=== PATIENT | female | born 1940 | race African-American/Black ===

== ENCOUNTER 2022-11-28 11:36 | Inpatient (IN) | payer OTHER ==
[2022-11-28] MEDS ORDERED: SODIUM CHLORIDE 500 ML IV STA ×2 (12:10→15:36)
[2022-11-28 13:58] LABS: BASO % 0.4 % (0-2.0); EOS % 1.9 % (0-4.5); HEMATOCRIT 30.8 % (32.4-45.2); HEMOGLOBIN 10.1 GM/dL (10.7-15.3); LYMPH % 29.3 % (8-40); MCH 27.4 pg (25.7-33.7); MCHC 32.7 g/dl (32.0-36.0); MEAN CELL VOLUME 83.9 fl (80-96); MEAN PLT VOLUME 8.1 fl (7.5-11.1); MONO % 9.1 % (3.8-10.2); NEUT % 59.3 % (42.8-82.8); PLATELET COUNT 311 10^3/uL (134-434); RBC 3.67 M/mm3 (3.60-5.2); RDW 14.2 % (11.6-15.6); WHITE BLOOD COUNT 7.7 K/mm3 (4.0-10.0)
[2022-11-28 14:04] LABS: INR 1.81 (0.83-1.09); PROTHROMBIN TIME (PATIENT) 20.9 SEC (9.7-13.0)
[2022-11-28 14:32] LABS: POTASSIUM 5.9 mmol/L (3.5-5.1)
[2022-11-28 14:34] LABS: ALBUMIN 2.7 g/dl (3.4-5.0); CALCIUM 9.1 mg/dL (8.5-10.1); MAGNESIUM 2.6 mg/dL (1.8-2.4)
[2022-11-28 14:35] LABS: BLOOD UREA NITROGEN 48.1 mg/dL (7-18)
[2022-11-28 14:38] LABS: CREATININE 1.7 mg/dL (0.55-1.3)
[2022-11-28 14:39] LABS: TOT PROT 7.7 g/dl (6.4-8.2)
[2022-11-28] MEDS ORDERED: DEXTROSE 50%-WATER - 25 GM/50 ML VIAL IVPUSH ONE ×3 (14:42→15:38)
[2022-11-28] MEDS ORDERED: CALCIUM GLUCONATE 10% - 1,000 MG/10 ML VIAL IVPUSH ONE (14:43)
[2022-11-28] MEDS ORDERED: DEXTROSE 50%-WATER 25 GM/50 ML DISP.SYRIN ONE ×2 (14:46→15:44)
[2022-11-28 14:52] LABS: BILIRUBIN,TOTAL 0.4 mg/dL (0.2-1)
[2022-11-28] MEDS ORDERED: CALCIUM GLUC IN NACL, ISO-OSM 1 GM/50 ML BAG IVPB ONE (14:55)
[2022-11-28 16:34] LABS: EPI CELLS 29 /uL (0-25.1); HYALINE CASTS 0 /uL (0-3.1); URINE APPEARANCE TURBID; URINE BACTERIA 4430 /uL (0-1359); URINE BILIRUBIN NEGATIVE (NEGATIVE); URINE COLOR YELLOW; URINE GLUCOSE (UA) NEGATIVE (NEGATIVE); URINE KETONE NEGATIVE (NEGATIVE); URINE LEUK ESTERASE 3+ (NEGATIVE); URINE NITRITE NEGATIVE (NEGATIVE); URINE PROTEIN 2+ (NEGATIVE); URINE RBC 139 /uL (0-23.9); URINE UROBILINOGEN 0.2 mg/dL (0.2-1.0); URINE WBC 13091 /uL (0-25.8)
[2022-11-28 17:23] LABS: YEAST NONE SEEN (NEGATIVE)
[2022-11-28 17:39] LABS: VENOUS BASE EXCESS -3.7 mmol/L (-2-2); VENOUS O2 SATURATION 43.8 % (70-80); VENOUS PCO2 47.2 mmHg (38-52); VENOUS PH 7.302 (7.310-7.410)
[2022-11-28 18:08] LABS: POTASSIUM 5.6 mmol/L (3.5-5.1)
[2022-11-28 18:09] LABS: CALCIUM 9.9 mg/dL (8.5-10.1)
[2022-11-28 18:10] LABS: BLOOD UREA NITROGEN 46.9 mg/dL (7-18)
[2022-11-28 18:13] LABS: CREATININE 1.8 mg/dL (0.55-1.3)
[2022-11-28] MEDS ORDERED: CEFTRIAXONE 1,000 MG in DEXTROSE 5%-WATER - 50 ML IVPB ONE (18:13)
[2022-11-28] MEDS ORDERED: CEFTRIAXONE 1 GM/50 ML BAG ONE (18:14)
[2022-11-28] MEDS: DEXTROSE 5%-NORMAL SALINE 1,000 ML IV SCH (18:23)
[2022-11-28] MEDS ORDERED: DOCUSATE SODIUM 100 MG CAPSULE (FP) PO PRN (21:06)
[2022-11-28] MEDS ORDERED: ACETAMINOPHEN 325 MG TABLET (FP) PO PRN (21:06)
[2022-11-28] MEDS ORDERED: INSULIN (NOVOLOG) ASPART 100 UNITS/ML 10ML VIAL ONE (22:36)
[2022-11-28] MEDS: INSULIN SLIDING SCALE (NOVOLOG) 1 VIAL SQ SCH (22:53)
[2022-11-29] MEDS: INSULIN SLIDING SCALE (NOVOLOG) 1 VIAL SQ SCH ×4 (06:40→21:54)
[2022-11-29 07:07] LABS: BASO % 0.3 % (0-2.0); EOS % 1.8 % (0-4.5); HEMOGLOBIN 9.4 GM/dL (10.7-15.3); LYMPH % 24.3 % (8-40); MCH 27.4 pg (25.7-33.7); MCHC 32.5 g/dl (32.0-36.0); MEAN CELL VOLUME 84.4 fl (80-96); MONO % 9.9 % (3.8-10.2); NEUT % 63.7 % (42.8-82.8); PLATELET COUNT 294 10^3/uL (134-434); RBC 3.43 M/mm3 (3.60-5.2); WHITE BLOOD COUNT 7.4 K/mm3 (4.0-10.0)
[2022-11-29 07:37] LABS: POTASSIUM 5.1 mmol/L (3.5-5.1)
[2022-11-29 07:39] LABS: BLOOD UREA NITROGEN 42.8 mg/dL (7-18); CALCIUM 9.3 mg/dL (8.5-10.1); MAGNESIUM 2.3 mg/dL (1.8-2.4)
[2022-11-29 07:42] LABS: CREATININE 1.5 mg/dL (0.55-1.3); PHOSPHOROUS 4.8 mg/dL (2.5-4.9)
[2022-11-29] MEDS: CEFTRIAXONE 1 GM in DEXTROSE 5%-WATER - 50 ML IVPB SCH (14:57)
[2022-11-29] MEDS: DEXTROSE 5%-NORMAL SALINE 1,000 ML IV SCH (17:51)
[2022-11-29] MEDS: levETIRAcetam 500 MG TABLET (FP) PO SCH (21:59)
[2022-11-29] MEDS: APIXABAN 5 MG TABLET PO SCH (21:59)
[2022-11-29] MEDS: ATORVASTATIN CA 80 MG TABLET (FP) PO SCH (21:59)
[2022-11-30] MEDS: DEXTROSE 5%-NORMAL SALINE 1,000 ML IV SCH (04:52)
[2022-11-30] MEDS: INSULIN SLIDING SCALE (NOVOLOG) 1 VIAL SQ SCH ×4 (06:36→23:00)
[2022-11-30 07:50] LABS: BASO % 0.5 % (0-2.0); EOS % 2.5 % (0-4.5); HEMATOCRIT 28.3 % (32.4-45.2); HEMOGLOBIN 9.3 GM/dL (10.7-15.3); LYMPH % 25.4 % (8-40); MCH 27.5 pg (25.7-33.7); MCHC 32.9 g/dl (32.0-36.0); MEAN CELL VOLUME 83.6 fl (80-96); MONO % 9.1 % (3.8-10.2); NEUT % 62.5 % (42.8-82.8); PLATELET COUNT 274 10^3/uL (134-434); RBC 3.39 M/mm3 (3.60-5.2); RDW 13.9 % (11.6-15.6); WHITE BLOOD COUNT 7.6 K/mm3 (4.0-10.0)
[2022-11-30 08:03] LABS: POTASSIUM 4.7 mmol/L (3.5-5.1)
[2022-11-30 08:07] LABS: ALBUMIN 2.5 g/dl (3.4-5.0); CALCIUM 9.1 mg/dL (8.5-10.1)
[2022-11-30 08:08] LABS: BLOOD UREA NITROGEN 22.4 mg/dL (7-18)
[2022-11-30 08:10] LABS: CREATININE 0.9 mg/dL (0.55-1.3)
[2022-11-30 08:12] LABS: BILIRUBIN,TOTAL 0.3 mg/dL (0.2-1); TOT PROT 7.2 g/dl (6.4-8.2)
[2022-11-30] MEDS ORDERED: levETIRAcetam 500 MG TABLET (FP) PO SCH ×2 (10:00)
[2022-11-30] MEDS ORDERED: PATIENT'S OWN MEDICATION (NON-FORMULARY) (Levetiracetam [Levetiracetam] 750 MG Tablet) PO SCH (10:00)
[2022-11-30] MEDS: APIXABAN 5 MG TABLET PO SCH ×3 (10:40→21:22)
[2022-11-30] MEDS: metoPROLOL SUCCINATE 25 MG TAB.SR.24H (FP) PO SCH ×2 (10:40→10:45)
[2022-11-30] MEDS: CEFTRIAXONE 1 GM in DEXTROSE 5%-WATER - 50 ML IVPB SCH (10:40)
[2022-11-30] MEDS: ATORVASTATIN CA 80 MG TABLET (FP) PO SCH (21:22)
[2022-11-30] MEDS: levETIRAcetam 500 MG TABLET (FP) PO SCH (21:23)
[2022-12-01] MEDS: INSULIN SLIDING SCALE (NOVOLOG) 1 VIAL SQ SCH ×3 (07:47→17:26)
[2022-12-01] MEDS: metoPROLOL SUCCINATE 25 MG TAB.SR.24H (FP) PO SCH (10:28)
[2022-12-01] MEDS: APIXABAN 5 MG TABLET PO SCH ×2 (10:28→23:29)
[2022-12-01] MEDS: CEFTRIAXONE 1 GM in DEXTROSE 5%-WATER - 50 ML IVPB SCH (10:28)
[2022-12-01] MEDS ORDERED: INSULIN (NOVOLOG) ASPART 100 UNITS/ML 10ML VIAL ONE ×2 (14:30→17:26)
[2022-12-01] MEDS: DEXTROSE 5%-NORMAL SALINE 1,000 ML IV SCH (17:24)
[2022-12-01] MEDS: MELATONIN 1 MG TABLET PO SCH (22:00)
[2022-12-01] MEDS: ATORVASTATIN CA 80 MG TABLET (FP) PO SCH (23:29)
[2022-12-01] MEDS: levETIRAcetam 500 MG TABLET (FP) PO SCH (23:29)
[2022-12-02] MEDS: INSULIN SLIDING SCALE (NOVOLOG) 1 VIAL SQ SCH ×5 (06:51→21:58)
[2022-12-02 08:25] LABS: POTASSIUM 3.8 mmol/L (3.5-5.1)
[2022-12-02 08:34] LABS: CALCIUM 9.2 mg/dL (8.5-10.1)
[2022-12-02 08:35] LABS: BLOOD UREA NITROGEN 10.3 mg/dL (7-18)
[2022-12-02 08:38] LABS: CREATININE 0.9 mg/dL (0.55-1.3)
[2022-12-02 08:56] LABS: HEMATOCRIT 29.3 % (32.4-45.2); HEMOGLOBIN 9.6 GM/dL (10.7-15.3); MCH 27.5 pg (25.7-33.7); MCHC 32.7 g/dl (32.0-36.0); MEAN PLT VOLUME 8.1 fl (7.5-11.1); PLATELET COUNT 247 10^3/uL (134-434); RBC 3.49 M/mm3 (3.60-5.2); RDW 13.9 % (11.6-15.6); WHITE BLOOD COUNT 13.9 K/mm3 (4.0-10.0)
[2022-12-02] MEDS: CEFTRIAXONE 1 GM in DEXTROSE 5%-WATER - 50 ML IVPB SCH (10:10)
[2022-12-02] MEDS: metoPROLOL SUCCINATE 25 MG TAB.SR.24H (FP) PO SCH (10:11)
[2022-12-02] MEDS: APIXABAN 5 MG TABLET PO SCH (10:11)
[2022-12-02] MEDS ORDERED: LORazepam 0.5 MG TABLET PO ONE ×2 (15:15→23:08)
[2022-12-02] MEDS ORDERED: METOPROLOL TARTRATE 5 MG/5 ML VIAL ONE (16:07)
[2022-12-02] MEDS ORDERED: METOPROLOL TARTRATE 5 MG/5 ML VIAL IVPUSH ONE (16:12)
[2022-12-02] MEDS ORDERED: dilTIAZem HCL 50 MG/10 ML - 10 ML VIAL IVPUSH ONE (16:26)
[2022-12-02 16:51] LABS: MAGNESIUM 1.5 mg/dL (1.8-2.4)
[2022-12-02] MEDS ORDERED: MAGNESIUM SULF 50% (8.12 MEQ/2 ML-1 GM VIAL) IVPB ONE (17:01)
[2022-12-02] MEDS ORDERED: AMIODARONE IN DEXTROSE,ISO-OSM 360 MG/200 ML BAG IV SCH ×3 (17:15→23:45)
[2022-12-02] MEDS ORDERED: AMIODARONE IN DEXTROSE,ISO-OSM 150 MG/100 ML BAG IVPB ONE (17:30)
[2022-12-02] MEDS: DEXTROSE 5%-NORMAL SALINE 1,000 ML IV SCH ×2 (18:06→19:00)
[2022-12-02] MEDS ORDERED: ENOXAPARIN NA (PORCINE) 80 MG/0.8 ML DISP.SYRIN SQ SCH (18:15)
[2022-12-02] MEDS: levETIRAcetam 500 MG TABLET (FP) PO SCH (21:51)
[2022-12-02] MEDS: ATORVASTATIN CA 80 MG TABLET (FP) PO SCH (21:51)
[2022-12-02] MEDS: CHLORHEXIDINE GLUCONATE 4% CLEANSER FOR DECOLONIZATION TP SCH (21:51)
[2022-12-02] MEDS: MUPIROCIN 2% TOPICAL OINTMENT FOR DECOLONIZATION NS SCH (21:51)
[2022-12-02] MEDS: MELATONIN 1 MG TABLET PO SCH (21:51)
[2022-12-02] MEDS ORDERED: DOCUSATE SODIUM 100 MG CAPSULE (FP) PO PRN (23:08)
[2022-12-02] MEDS ORDERED: ACETAMINOPHEN 325 MG TABLET (FP) PO PRN (23:08)
[2022-12-03] MEDS: AMIODARONE IN DEXTROSE,ISO-OSM 360 MG/200 ML BAG IV SCH ×3 (00:08→23:06)
[2022-12-03] MEDS: INSULIN SLIDING SCALE (NOVOLOG) 1 VIAL SQ SCH ×4 (06:06→21:22)
[2022-12-03] MEDS ORDERED: ENOXAPARIN NA (PORCINE) 100 MG/1 ML DISP.SYRIN SQ SCH (06:15)
[2022-12-03] MEDS: MUPIROCIN 2% TOPICAL OINTMENT FOR DECOLONIZATION NS SCH ×2 (09:38→21:25)
[2022-12-03] MEDS: CEFTRIAXONE 1 GM in DEXTROSE 5%-WATER - 50 ML IVPB SCH (09:38)
[2022-12-03] MEDS: ENOXAPARIN NA (PORCINE) 100 MG/1 ML DISP.SYRIN SQ SCH ×2 (09:38→21:22)
[2022-12-03] MEDS ORDERED: metoPROLOL SUCCINATE 25 MG TAB.SR.24H (FP) PO SCH (10:00)
[2022-12-03] MEDS ORDERED: INSULIN (NOVOLOG) ASPART 100 UNITS/ML 10ML VIAL ONE ×2 (11:53→20:47)
[2022-12-03 12:06] LABS: HEMATOCRIT 25.3 % (32.4-45.2); HEMOGLOBIN 8.2 GM/dL (10.7-15.3); MCH 27.2 pg (25.7-33.7); MCHC 32.4 g/dl (32.0-36.0); MEAN PLT VOLUME 8.1 fl (7.5-11.1); PLATELET COUNT 215 10^3/uL (134-434); RBC 3.01 M/mm3 (3.60-5.2); RDW 13.9 % (11.6-15.6); WHITE BLOOD COUNT 9.7 K/mm3 (4.0-10.0)
[2022-12-03 12:24] LABS: POTASSIUM 3.3 mmol/L (3.5-5.1)
[2022-12-03 12:25] LABS: CALCIUM 8.7 mg/dL (8.5-10.1)
[2022-12-03 12:26] LABS: BLOOD UREA NITROGEN 12.8 mg/dL (7-18); MAGNESIUM 1.9 mg/dL (1.8-2.4)
[2022-12-03 12:28] LABS: CREATININE 0.9 mg/dL (0.55-1.3); PHOSPHOROUS 2.8 mg/dL (2.5-4.9)
[2022-12-03 12:34] LABS: N-TERMINAL BNP 1665.9 pg/ml (5-450)
[2022-12-03] MEDS: DEXTROSE 5%-NORMAL SALINE 1,000 ML IV SCH ×2 (13:47→23:05)
[2022-12-03] MEDS: levETIRAcetam 500 MG/5 ML INJECTION VIAL IVPB SCH (21:22)
[2022-12-03] MEDS: ATORVASTATIN CA 80 MG TABLET (FP) PO SCH (21:25)
[2022-12-03] MEDS: MELATONIN 1 MG TABLET PO SCH (21:25)
[2022-12-03] MEDS: CHLORHEXIDINE GLUCONATE 4% CLEANSER FOR DECOLONIZATION TP SCH (21:25)
[2022-12-03] MEDS ORDERED: levETIRAcetam 500 MG TABLET (FP) PO SCH (22:00)
[2022-12-04] MEDS: INSULIN SLIDING SCALE (NOVOLOG) 1 VIAL SQ SCH ×4 (06:10→21:54)
[2022-12-04] MEDS: CEFTRIAXONE 1 GM in DEXTROSE 5%-WATER - 50 ML IVPB SCH (10:05)
[2022-12-04] MEDS: ENOXAPARIN NA (PORCINE) 100 MG/1 ML DISP.SYRIN SQ SCH ×2 (10:05→21:53)
[2022-12-04] MEDS: levETIRAcetam 500 MG/5 ML INJECTION VIAL IVPB SCH ×2 (10:06→21:53)
[2022-12-04] MEDS: MUPIROCIN 2% TOPICAL OINTMENT FOR DECOLONIZATION NS SCH ×2 (12:10→21:53)
[2022-12-04] MEDS: AMIODARONE IN DEXTROSE,ISO-OSM 360 MG/200 ML BAG IV SCH (12:41)
[2022-12-04] MEDS ORDERED: INSULIN (NOVOLOG) ASPART 100 UNITS/ML 10ML VIAL ONE (17:15)
[2022-12-04] MEDS: DEXTROSE 5%-NORMAL SALINE 1,000 ML IV SCH (17:39)
[2022-12-04] MEDS: CHLORHEXIDINE GLUCONATE 4% CLEANSER FOR DECOLONIZATION TP SCH (21:53)
[2022-12-04] MEDS: ATORVASTATIN CA 80 MG TABLET (FP) PO SCH (21:54)
[2022-12-04] MEDS: MELATONIN 1 MG TABLET PO SCH (21:54)
[2022-12-05] MEDS: AMIODARONE IN DEXTROSE,ISO-OSM 360 MG/200 ML BAG IV SCH ×2 (03:19→15:57)
[2022-12-05] MEDS: INSULIN SLIDING SCALE (NOVOLOG) 1 VIAL SQ SCH ×4 (06:09→22:19)
[2022-12-05] MEDS: DEXTROSE 5%-NORMAL SALINE 1,000 ML IV SCH ×2 (09:10→23:20)
[2022-12-05] MEDS: levETIRAcetam 500 MG/5 ML INJECTION VIAL IVPB SCH ×2 (09:11→21:57)
[2022-12-05] MEDS: ENOXAPARIN NA (PORCINE) 100 MG/1 ML DISP.SYRIN SQ SCH ×2 (09:11→21:58)
[2022-12-05] MEDS: MUPIROCIN 2% TOPICAL OINTMENT FOR DECOLONIZATION NS SCH (09:11)
[2022-12-05] MEDS: CEFTRIAXONE 1 GM in DEXTROSE 5%-WATER - 50 ML IVPB SCH (09:11)
[2022-12-05] MEDS: MELATONIN 1 MG TABLET PO SCH ×2 (21:57→22:16)
[2022-12-05] MEDS: ATORVASTATIN CA 80 MG TABLET (FP) PO SCH ×2 (22:01→22:16)
[2022-12-05] MEDS ORDERED: INSULIN (NOVOLOG) ASPART 100 UNITS/ML 10ML VIAL ONE (22:18)
[2022-12-06] MEDS: AMIODARONE IN DEXTROSE,ISO-OSM 360 MG/200 ML BAG IV SCH ×2 (00:10→20:46)
[2022-12-06] MEDS ORDERED: INSULIN (NOVOLOG) ASPART 100 UNITS/ML 10ML VIAL ONE ×3 (06:09→22:11)
[2022-12-06] MEDS: INSULIN SLIDING SCALE (NOVOLOG) 1 VIAL SQ SCH ×4 (06:25→22:12)
[2022-12-06 07:55] LABS: BASO % 0.3 % (0-2.0); EOS % 0.3 % (0-4.5); HEMATOCRIT 25.4 % (32.4-45.2); HEMOGLOBIN 8.6 GM/dL (10.7-15.3); LYMPH % 21.6 % (8-40); MCH 27.6 pg (25.7-33.7); MCHC 33.7 g/dl (32.0-36.0); MEAN CELL VOLUME 81.7 fl (80-96); MEAN PLT VOLUME 8.5 fl (7.5-11.1); MONO % 9.6 % (3.8-10.2); NEUT % 68.2 % (42.8-82.8); PLATELET COUNT 183 10^3/uL (134-434); RBC 3.11 M/mm3 (3.60-5.2); RDW 14.1 % (11.6-15.6); WHITE BLOOD COUNT 7.8 K/mm3 (4.0-10.0)
[2022-12-06 08:13] LABS: CHLORIDE 106 mmol/L (98-107); SODIUM 142 mmol/L (136-145)
[2022-12-06 08:15] LABS: BLOOD UREA NITROGEN 4.1 mg/dL (7-18); CALCIUM 8.5 mg/dL (8.5-10.1); CO2 28 mmol/L (21-32); GLUCOSE,RANDOM 234 mg/dL (74-106)
[2022-12-06 08:19] LABS: CREATININE 0.7 mg/dL (0.55-1.3); SGOT/AST 17 U/L (15-37); SGPT/ALT 30 U/L (13-61)
[2022-12-06 08:21] LABS: BILIRUBIN,TOTAL 0.2 mg/dL (0.2-1); TOT PROT 6.2 g/dl (6.4-8.2)
[2022-12-06 08:26] LABS: ALBUMIN 1.9 g/dl (3.4-5.0); ALK PHOS 100 U/L (45-117); ANION GAP 9 MMOL/L (8-16); POTASSIUM 2.7 mmol/L (3.5-5.1)
[2022-12-06] MEDS: ENOXAPARIN NA (PORCINE) 100 MG/1 ML DISP.SYRIN SQ SCH ×2 (09:59→22:14)
[2022-12-06] MEDS: CEFTRIAXONE 1 GM in DEXTROSE 5%-WATER - 50 ML IVPB SCH (10:00)
[2022-12-06] MEDS: KCL 10 MEQ IVPB 10 MEQ/100 ML INFUS.BAG IVPB SCH ×5 (10:00→18:41)
[2022-12-06] MEDS: levETIRAcetam 500 MG/5 ML INJECTION VIAL IVPB SCH ×2 (10:00→22:14)
[2022-12-06 10:57] LABS: MAGNESIUM 1.5 mg/dL (1.8-2.4)
[2022-12-06] MEDS ORDERED: MAGNESIUM OXIDE 400 MG TABLET (FP) PO ONE (11:45)
[2022-12-06] MEDS ORDERED: MAGNESIUM SULF 50% (8.12 MEQ/2 ML-1 GM VIAL) IVPB ONE (14:04)
[2022-12-06] MEDS ORDERED: ACETAMINOPHEN 1000 MG/100 ML BAG IVPB PRN (14:04)
[2022-12-06] MEDS: POTASSIUM CHLORIDE ORAL LIQUID 20 MEQ/15 ML PO SCH ×3 (14:25→23:01)
[2022-12-06] MEDS: MELATONIN 1 MG TABLET PO SCH (22:14)
[2022-12-06] MEDS: ATORVASTATIN CA 80 MG TABLET (FP) PO SCH ×2 (22:14→22:30)
[2022-12-07] MEDS ORDERED: INSULIN (NOVOLOG) ASPART 100 UNITS/ML 10ML VIAL ONE ×2 (05:59→23:12)
[2022-12-07] MEDS: INSULIN SLIDING SCALE (NOVOLOG) 1 VIAL SQ SCH ×4 (06:07→23:13)
[2022-12-07 07:26] LABS: BASO % 0.4 % (0-2.0); EOS % 0.8 % (0-4.5); HEMATOCRIT 23.2 % (32.4-45.2); HEMOGLOBIN 7.8 GM/dL (10.7-15.3); LYMPH % 20.6 % (8-40); MCH 27.7 pg (25.7-33.7); MCHC 33.6 g/dl (32.0-36.0); MEAN CELL VOLUME 82.2 fl (80-96); MEAN PLT VOLUME 8.6 fl (7.5-11.1); MONO % 9.7 % (3.8-10.2); NEUT % 68.5 % (42.8-82.8); PLATELET COUNT 214 10^3/uL (134-434); RBC 2.82 M/mm3 (3.60-5.2); RDW 14.1 % (11.6-15.6); WHITE BLOOD COUNT 6.4 K/mm3 (4.0-10.0)
[2022-12-07 07:36] LABS: CHLORIDE 105 mmol/L (98-107); SODIUM 141 mmol/L (136-145)
[2022-12-07 07:38] LABS: ALBUMIN 1.7 g/dl (3.4-5.0); BLOOD UREA NITROGEN 3.9 mg/dL (7-18); CALCIUM 8.2 mg/dL (8.5-10.1); CO2 28 mmol/L (21-32); GLUCOSE,RANDOM 206 mg/dL (74-106); MAGNESIUM 1.6 mg/dL (1.8-2.4)
[2022-12-07 07:41] LABS: CREATININE 0.7 mg/dL (0.55-1.3); SGOT/AST 20 U/L (15-37); SGPT/ALT 30 U/L (13-61)
[2022-12-07 07:43] LABS: BILIRUBIN,TOTAL 0.4 mg/dL (0.2-1); TOT PROT 5.8 g/dl (6.4-8.2)
[2022-12-07 07:44] LABS: ALK PHOS 98 U/L (45-117)
[2022-12-07 07:48] LABS: ANION GAP 8 MMOL/L (8-16); POTASSIUM 2.9 mmol/L (3.5-5.1)
[2022-12-07] MEDS: AMIODARONE IN DEXTROSE,ISO-OSM 360 MG/200 ML BAG IV SCH ×2 (08:49→21:27)
[2022-12-07] MEDS: ESCITALOPRAM OXALATE 10 MG TABLET PO SCH (09:57)
[2022-12-07] MEDS: CEFTRIAXONE 1 GM in DEXTROSE 5%-WATER - 50 ML IVPB SCH (09:57)
[2022-12-07] MEDS: ENOXAPARIN NA (PORCINE) 100 MG/1 ML DISP.SYRIN SQ SCH ×2 (09:57→22:00)
[2022-12-07] MEDS: levETIRAcetam 500 MG/5 ML INJECTION VIAL IVPB SCH ×2 (09:57→22:00)
[2022-12-07] MEDS ORDERED: POTASSIUM CHLORIDE ORAL LIQUID 20 MEQ/15 ML PO ONE ×2 (11:15→17:00)
[2022-12-07] MEDS: KCL 10 MEQ IVPB 10 MEQ/100 ML INFUS.BAG IVPB SCH ×3 (11:16→13:36)
[2022-12-07] MEDS ORDERED: MAGNESIUM 2GM/50ML STERILE WATER IVPB IVPB ONE (15:20)
[2022-12-07] MEDS ORDERED: IRON SUCROSE INJECTION 200 MG in SODIUM CHLORIDE 90 ML IVPB ONE (17:51)
[2022-12-07] MEDS: POLYETHYLENE GLYCOL (HEALTHYLAX) 3350 17 GM PACKET PO SCH ×2 (22:00)
[2022-12-07] MEDS: ATORVASTATIN CA 80 MG TABLET (FP) PO SCH ×2 (22:00)
[2022-12-07] MEDS: MELATONIN 1 MG TABLET PO SCH ×2 (22:00→22:01)
[2022-12-07] MEDS: PANTOPRAZOLE SODIUM 40 MG VIAL IVPUSH SCH (22:01)
[2022-12-08] MEDS ORDERED: INSULIN (NOVOLOG) ASPART 100 UNITS/ML 10ML VIAL ONE ×5 (06:39→21:06)
[2022-12-08] MEDS: POLYETHYLENE GLYCOL (HEALTHYLAX) 3350 17 GM PACKET PO SCH ×3 (06:40→21:59)
[2022-12-08] MEDS: INSULIN SLIDING SCALE (NOVOLOG) 1 VIAL SQ SCH ×4 (06:41→22:01)
[2022-12-08] MEDS ORDERED: ACETAMINOPHEN 325 MG TABLET (FP) PO PRN (07:05)
[2022-12-08] MEDS ORDERED: AMIODARONE IN DEXTROSE,ISO-OSM 360 MG/200 ML BAG IV SCH (07:05)
[2022-12-08] MEDS ORDERED: DOCUSATE SODIUM 100 MG CAPSULE (FP) PO PRN (07:05)
[2022-12-08 08:19] LABS: INR 1.3 (0.83-1.09)
[2022-12-08 08:21] LABS: BASO % 0.4 % (0-2.0); EOS % 1.1 % (0-4.5); HEMATOCRIT 24.7 % (32.4-45.2); HEMOGLOBIN 8.1 GM/dL (10.7-15.3); MCH 27.2 pg (25.7-33.7); MCHC 32.7 g/dl (32.0-36.0); MEAN CELL VOLUME 83.1 fl (80-96); MEAN PLT VOLUME 8.9 fl (7.5-11.1); MONO % 9.4 % (3.8-10.2); NEUT % 72.1 % (42.8-82.8); PLATELET COUNT 259 10^3/uL (134-434); RBC 2.97 M/mm3 (3.60-5.2); RDW 13.8 % (11.6-15.6); WHITE BLOOD COUNT 6.9 K/mm3 (4.0-10.0)
[2022-12-08 08:54] LABS: POTASSIUM 3.9 mmol/L (3.5-5.1)
[2022-12-08 09:02] LABS: CALCIUM 8.3 mg/dL (8.5-10.1)
[2022-12-08 09:03] LABS: ALBUMIN 1.8 g/dl (3.4-5.0)
[2022-12-08 09:06] LABS: CREATININE 0.7 mg/dL (0.55-1.3)
[2022-12-08 09:07] LABS: BILIRUBIN,TOTAL 0.3 mg/dL (0.2-1); TOT PROT 6.1 g/dl (6.4-8.2)
[2022-12-08] MEDS ORDERED: MINERAL OIL ENEMA 133 ML ENEMA RC ONE (09:45)
[2022-12-08] MEDS: ENOXAPARIN NA (PORCINE) 100 MG/1 ML DISP.SYRIN SQ SCH ×2 (10:09→21:59)
[2022-12-08] MEDS: levETIRAcetam 500 MG/5 ML INJECTION VIAL IVPB SCH ×2 (10:09→22:00)
[2022-12-08] MEDS: ESCITALOPRAM OXALATE 10 MG TABLET PO SCH ×2 (10:09→10:27)
[2022-12-08] MEDS: CEFTRIAXONE 1 GM in DEXTROSE 5%-WATER - 50 ML IVPB SCH (10:09)
[2022-12-08] MEDS: PANTOPRAZOLE SODIUM 40 MG VIAL IVPUSH SCH ×2 (10:09→22:01)
[2022-12-08] MEDS: AMIODARONE HCL 200 MG TABLET PO SCH ×2 (11:12→11:19)
[2022-12-08 14:23] VITALS: BMI 28.3
[2022-12-08] MEDS: MELATONIN 1 MG TABLET PO SCH (21:59)
[2022-12-08] MEDS: ATORVASTATIN CA 80 MG TABLET (FP) PO SCH (22:00)
[2022-12-08] MEDS: METOPROLOL TARTRATE 25 MG TABLET (FP) PO SCH (22:01)
[2022-12-09] MEDS: INSULIN SLIDING SCALE (NOVOLOG) 1 VIAL SQ SCH ×3 (06:22→15:46)
[2022-12-09] MEDS: POLYETHYLENE GLYCOL (HEALTHYLAX) 3350 17 GM PACKET PO SCH ×3 (06:23→21:48)
[2022-12-09] MEDS: AMIODARONE HCL 200 MG TABLET PO SCH (09:07)
[2022-12-09] MEDS: CEFTRIAXONE 1 GM in DEXTROSE 5%-WATER - 50 ML IVPB SCH (09:07)
[2022-12-09] MEDS: ENOXAPARIN NA (PORCINE) 100 MG/1 ML DISP.SYRIN SQ SCH ×2 (09:07→22:15)
[2022-12-09] MEDS: levETIRAcetam 500 MG/5 ML INJECTION VIAL IVPB SCH ×2 (09:07→22:31)
[2022-12-09] MEDS: METOPROLOL TARTRATE 25 MG TABLET (FP) PO SCH ×2 (09:07→22:15)
[2022-12-09] MEDS: ESCITALOPRAM OXALATE 10 MG TABLET PO SCH (09:07)
[2022-12-09] MEDS: PANTOPRAZOLE SODIUM 40 MG VIAL IVPUSH SCH ×2 (09:07→21:50)
[2022-12-09 10:24] LABS: BASO % 0.2 % (0-2.0); EOS % 1.9 % (0-4.5); HEMATOCRIT 23.6 % (32.4-45.2); HEMOGLOBIN 8.2 GM/dL (10.7-15.3); LYMPH % 19.4 % (8-40); MCH 27.8 pg (25.7-33.7); MCHC 34.5 g/dl (32.0-36.0); MEAN CELL VOLUME 80.7 fl (80-96); MEAN PLT VOLUME 7.6 fl (7.5-11.1); MONO % 10.5 % (3.8-10.2); PLATELET COUNT 279 10^3/uL (134-434); RBC 2.93 M/mm3 (3.60-5.2); RDW 14.1 % (11.6-15.6); WHITE BLOOD COUNT 6.7 K/mm3 (4.0-10.0)
[2022-12-09] MEDS ORDERED: INSULIN (NOVOLOG) ASPART 100 UNITS/ML 10ML VIAL ONE (11:05)
[2022-12-09] MEDS: AMINO ACIDS 4.25%/D5W 1,000 ML IV SCH (11:22)
[2022-12-09] MEDS: MIRTAZAPINE 15 MG TABLET (FP) PO SCH (22:08)
[2022-12-09] MEDS: MELATONIN 1 MG TABLET PO SCH (22:09)
[2022-12-09] MEDS: ATORVASTATIN CA 80 MG TABLET (FP) PO SCH (22:30)
[2022-12-10] MEDS: POLYETHYLENE GLYCOL (HEALTHYLAX) 3350 17 GM PACKET PO SCH ×3 (06:02→21:40)
[2022-12-10] MEDS: INSULIN SLIDING SCALE (NOVOLOG) 1 VIAL SQ SCH ×5 (06:03→21:39)
[2022-12-10] MEDS: METOPROLOL TARTRATE 25 MG TABLET (FP) PO SCH ×2 (09:29→21:19)
[2022-12-10] MEDS: AMIODARONE HCL 200 MG TABLET PO SCH ×2 (09:30→16:48)
[2022-12-10] MEDS: PANTOPRAZOLE SODIUM 40 MG VIAL IVPUSH SCH ×2 (11:20→21:19)
[2022-12-10] MEDS: levETIRAcetam 500 MG/5 ML INJECTION VIAL IVPB SCH ×2 (11:20→21:19)
[2022-12-10] MEDS ORDERED: INSULIN (NOVOLOG) ASPART 100 UNITS/ML 10ML VIAL ONE ×3 (11:24→21:37)
[2022-12-10] MEDS: AMINO ACIDS 4.25%/D5W 1,000 ML IV SCH (11:31)
[2022-12-10] MEDS: CEFTRIAXONE 1 GM in DEXTROSE 5%-WATER - 50 ML IVPB SCH (11:48)
[2022-12-10] MEDS: MELATONIN 1 MG TABLET PO SCH (21:19)
[2022-12-10] MEDS: ATORVASTATIN CA 80 MG TABLET (FP) PO SCH (21:19)
[2022-12-10] MEDS: MIRTAZAPINE 15 MG TABLET (FP) PO SCH (21:19)
[2022-12-11] MEDS: POLYETHYLENE GLYCOL (HEALTHYLAX) 3350 17 GM PACKET PO SCH ×3 (06:05→21:51)
[2022-12-11] MEDS: INSULIN SLIDING SCALE (NOVOLOG) 1 VIAL SQ SCH ×4 (06:08→21:59)
[2022-12-11] MEDS: AMIODARONE HCL 200 MG TABLET PO SCH ×2 (09:40→10:55)
[2022-12-11] MEDS: levETIRAcetam 500 MG/5 ML INJECTION VIAL IVPB SCH ×2 (09:40→21:51)
[2022-12-11] MEDS: PANTOPRAZOLE SODIUM 40 MG VIAL IVPUSH SCH ×2 (09:40→21:51)
[2022-12-11] MEDS: METOPROLOL TARTRATE 25 MG TABLET (FP) PO SCH ×3 (09:40→21:51)
[2022-12-11] MEDS: AMINO ACIDS 4.25%/D5W 1,000 ML IV SCH (10:30)
[2022-12-11] MEDS ORDERED: INSULIN (NOVOLOG) ASPART 100 UNITS/ML 10ML VIAL ONE ×3 (12:07→21:59)
[2022-12-11] MEDS: MELATONIN 1 MG TABLET PO SCH (21:51)
[2022-12-11] MEDS: ATORVASTATIN CA 80 MG TABLET (FP) PO SCH (21:52)
[2022-12-11] MEDS: MIRTAZAPINE 15 MG TABLET (FP) PO SCH (21:52)
[2022-12-12] MEDS: POLYETHYLENE GLYCOL (HEALTHYLAX) 3350 17 GM PACKET PO SCH ×4 (06:11→22:45)
[2022-12-12] MEDS: INSULIN SLIDING SCALE (NOVOLOG) 1 VIAL SQ SCH ×4 (06:11→22:36)
[2022-12-12 09:06] LABS: POTASSIUM 3.2 mmol/L (3.5-5.1)
[2022-12-12 09:16] LABS: CALCIUM 8.7 mg/dL (8.5-10.1)
[2022-12-12 09:18] LABS: BLOOD UREA NITROGEN 8.4 mg/dL (7-18)
[2022-12-12 09:20] LABS: CREATININE 0.7 mg/dL (0.55-1.3)
[2022-12-12 09:21] LABS: BILIRUBIN,TOTAL 0.5 mg/dL (0.2-1)
[2022-12-12 09:22] LABS: TOT PROT 6.6 g/dl (6.4-8.2)
[2022-12-12 09:23] LABS: ALBUMIN 2.2 g/dl (3.4-5.0)
[2022-12-12] MEDS: PANTOPRAZOLE SODIUM 40 MG VIAL IVPUSH SCH ×2 (10:20→22:30)
[2022-12-12] MEDS: levETIRAcetam 500 MG/5 ML INJECTION VIAL IVPB SCH ×2 (10:21→22:29)
[2022-12-12] MEDS: AMINO ACIDS 4.25%/D5W 1,000 ML IV SCH (10:21)
[2022-12-12] MEDS: AMIODARONE HCL 200 MG TABLET PO SCH (11:00)
[2022-12-12] MEDS: LOSARTAN POTASSIUM 50 MG TABLET PO SCH (11:01)
[2022-12-12] MEDS: METOPROLOL TARTRATE 25 MG TABLET (FP) PO SCH ×2 (11:01→22:29)
[2022-12-12] MEDS ORDERED: INSULIN (NOVOLOG) ASPART 100 UNITS/ML 10ML VIAL ONE (12:06)
[2022-12-12] MEDS ORDERED: POTASSIUM CHLORIDE ORAL LIQUID 20 MEQ/15 ML PO ONE (13:45)
[2022-12-12] MEDS: KCL 10 MEQ IVPB 10 MEQ/100 ML INFUS.BAG IVPB SCH ×3 (14:26→16:20)
[2022-12-12] MEDS: ATORVASTATIN CA 80 MG TABLET (FP) PO SCH (22:29)
[2022-12-12] MEDS: MELATONIN 1 MG TABLET PO SCH (22:30)
[2022-12-12] MEDS: MIRTAZAPINE 15 MG TABLET (FP) PO SCH (22:30)
[2022-12-13] MEDS: POLYETHYLENE GLYCOL (HEALTHYLAX) 3350 17 GM PACKET PO SCH ×3 (05:46→22:37)
[2022-12-13] MEDS: INSULIN SLIDING SCALE (NOVOLOG) 1 VIAL SQ SCH ×4 (06:40→22:46)
[2022-12-13 09:01] LABS: BASO % 0.5 % (0-2.0); EOS % 1.4 % (0-4.5); HEMATOCRIT 25.2 % (32.4-45.2); HEMOGLOBIN 8.2 GM/dL (10.7-15.3); LYMPH % 21.1 % (8-40); MCH 27.4 pg (25.7-33.7); MCHC 32.5 g/dl (32.0-36.0); MEAN CELL VOLUME 84.4 fl (80-96); MEAN PLT VOLUME 8.1 fl (7.5-11.1); PLATELET COUNT 414 10^3/uL (134-434); RBC 2.99 M/mm3 (3.60-5.2); RDW 14.3 % (11.6-15.6); WHITE BLOOD COUNT 7.9 K/mm3 (4.0-10.0)
[2022-12-13 09:29] LABS: POTASSIUM 3.6 mmol/L (3.5-5.1)
[2022-12-13] MEDS: LOSARTAN POTASSIUM 50 MG TABLET PO SCH (09:30)
[2022-12-13] MEDS: AMIODARONE HCL 200 MG TABLET PO SCH (09:31)
[2022-12-13] MEDS: PANTOPRAZOLE SODIUM 40 MG VIAL IVPUSH SCH ×2 (09:31→22:39)
[2022-12-13] MEDS: levETIRAcetam 500 MG/5 ML INJECTION VIAL IVPB SCH ×2 (09:31→22:38)
[2022-12-13] MEDS: METOPROLOL TARTRATE 25 MG TABLET (FP) PO SCH ×2 (09:56→22:55)
[2022-12-13 09:57] LABS: ALBUMIN 2.3 g/dl (3.4-5.0)
[2022-12-13 09:58] LABS: BLOOD UREA NITROGEN 10.2 mg/dL (7-18); CALCIUM 8.9 mg/dL (8.5-10.1); MAGNESIUM 1.8 mg/dL (1.8-2.4)
[2022-12-13] MEDS: AMINO ACIDS 4.25%/D5W 1,000 ML IV SCH (10:00)
[2022-12-13 10:01] LABS: CREATININE 0.7 mg/dL (0.55-1.3)
[2022-12-13 10:02] LABS: BILIRUBIN,TOTAL 0.4 mg/dL (0.2-1); TOT PROT 6.8 g/dl (6.4-8.2)
[2022-12-13] MEDS ORDERED: PROPOFOL 20 ML ONE (11:37)
[2022-12-13] MEDS ORDERED: ceFAZolin SODIUM 1 GM VIAL ONE (12:01)
[2022-12-13] MEDS ORDERED: DEXAMETHASONE SOD PHOSPHATE 4 MG/1 ML VIAL ONE (12:01)
[2022-12-13] MEDS ORDERED: ceFAZolin SODIUM 1 GM VIAL IVPB ONE (12:01)
[2022-12-13] MEDS ORDERED: ONDANSETRON 4 MG/2 ML VIAL ONE (12:01)
[2022-12-13] MEDS ORDERED: LACTATED RINGERS SOLUTION 1,000 ML IV SCH (12:45)
[2022-12-13] MEDS ORDERED: ONDANSETRON 4 MG/2 ML VIAL IVPUSH PRN (12:45)
[2022-12-13] MEDS ORDERED: ACETAMINOPHEN 325 MG TABLET (FP) PO PRN (12:50)
[2022-12-13] MEDS: SODIUM CHLORIDE 500 ML IV SCH (15:20)
[2022-12-13] MEDS ORDERED: FENTANYL CITRATE/PF 50 MCG/ML VIAL ONE ×2 (15:26→15:58)
[2022-12-13] MEDS ORDERED: MIDAZOLAM HCL 2 MG/2 ML SINGLE DOSE VIAL ONE (15:28)
[2022-12-13] MEDS ORDERED: FENTANYL CITRATE/PF 50 MCG/ML VIAL IVPUSH ONE ×2 (15:30)
[2022-12-13] MEDS ORDERED: INSULIN (NOVOLOG) ASPART 100 UNITS/ML 10ML VIAL ONE (17:53)
[2022-12-13] MEDS: MELATONIN 1 MG TABLET PO SCH (22:55)
[2022-12-13] MEDS: ATORVASTATIN CA 80 MG TABLET (FP) PO SCH (22:55)
[2022-12-13] MEDS: MIRTAZAPINE 15 MG TABLET (FP) PO SCH (22:55)
[2022-12-14] MEDS: POLYETHYLENE GLYCOL (HEALTHYLAX) 3350 17 GM PACKET PO SCH ×2 (05:33→13:29)
[2022-12-14] MEDS: INSULIN SLIDING SCALE (NOVOLOG) 1 VIAL SQ SCH ×3 (06:57→17:11)
[2022-12-14] MEDS: AMINO ACIDS 4.25%/D5W 1,000 ML IV SCH (10:32)
[2022-12-14] MEDS: levETIRAcetam 500 MG/5 ML INJECTION VIAL IVPB SCH ×2 (10:33→23:56)
[2022-12-14] MEDS: PANTOPRAZOLE SODIUM 40 MG VIAL IVPUSH SCH ×2 (10:33→23:55)
[2022-12-14] MEDS: LOSARTAN POTASSIUM 50 MG TABLET PO SCH ×2 (11:09→14:18)
[2022-12-14] MEDS: METOPROLOL TARTRATE 25 MG TABLET (FP) PO SCH ×2 (11:09→23:38)
[2022-12-14] MEDS: AMIODARONE HCL 200 MG TABLET PO SCH ×2 (11:09→14:16)
[2022-12-14] MEDS ORDERED: INSULIN (NOVOLOG) ASPART 100 UNITS/ML 10ML VIAL ONE (17:09)
[2022-12-14] MEDS: SODIUM CHLORIDE 500 ML IV SCH (19:50)
[2022-12-14] MEDS: MELATONIN 1 MG TABLET PO SCH (23:10)
[2022-12-14] MEDS: ATORVASTATIN CA 80 MG TABLET (FP) PO SCH (23:55)
[2022-12-14] MEDS: MIRTAZAPINE 15 MG TABLET (FP) PO SCH (23:55)
[2022-12-15] MEDS: POLYETHYLENE GLYCOL (HEALTHYLAX) 3350 17 GM PACKET PO SCH ×3 (00:02→14:00)
[2022-12-15] MEDS: INSULIN SLIDING SCALE (NOVOLOG) 1 VIAL SQ SCH ×5 (00:06→17:56)
[2022-12-15] MEDS ORDERED: INSULIN (NOVOLOG) ASPART 100 UNITS/ML 10ML VIAL ONE (07:47)
[2022-12-15] MEDS: AMINO ACIDS 4.25%/D5W 1,000 ML IV SCH (11:18)
[2022-12-15] MEDS: PANTOPRAZOLE SODIUM 40 MG VIAL IVPUSH SCH (11:19)
[2022-12-15] MEDS: levETIRAcetam 500 MG/5 ML INJECTION VIAL IVPB SCH (11:19)
[2022-12-15] MEDS: LOSARTAN POTASSIUM 50 MG TABLET PO SCH ×2 (11:19→12:07)
[2022-12-15] MEDS: METOPROLOL TARTRATE 25 MG TABLET (FP) PO SCH ×2 (11:19→12:06)
[2022-12-15] MEDS: AMIODARONE HCL 200 MG TABLET PO SCH ×2 (11:19→12:07)
[2022-12-15] MEDS ORDERED: ceFAZolin SODIUM 1 GM VIAL IVPB ONE (13:37)
[2022-12-15] MEDS: CEFAZOLIN 1 GM in DEXTROSE 5%-WATER 100 ML IVPB SCH (19:23)
[2022-12-15] MEDS: SODIUM CHLORIDE 500 ML IV SCH (20:27)
[2022-12-15 20:31] LABS: BASO % 0.2 % (0-2.0); EOS % 0.4 % (0-4.5); HEMATOCRIT 25.9 % (32.4-45.2); HEMOGLOBIN 8.4 GM/dL (10.7-15.3); LYMPH % 13.4 % (8-40); MCH 27.7 pg (25.7-33.7); MCHC 32.6 g/dl (32.0-36.0); MEAN CELL VOLUME 84.9 fl (80-96); MEAN PLT VOLUME 7.5 fl (7.5-11.1); MONO % 9.8 % (3.8-10.2); NEUT % 76.2 % (42.8-82.8); PLATELET COUNT 447 10^3/uL (134-434); RBC 3.05 M/mm3 (3.60-5.2)
[2022-12-15 20:39] LABS: INR 1.09 (0.83-1.09); PROTHROMBIN TIME (PATIENT) 12.6 SEC (9.7-13.0)
[2022-12-15 21:27] LABS: POTASSIUM 3.2 mmol/L (3.5-5.1)
[2022-12-15 21:29] LABS: ALBUMIN 2.4 g/dl (3.4-5.0); CALCIUM 9.4 mg/dL (8.5-10.1)
[2022-12-15 21:30] LABS: BLOOD UREA NITROGEN 17.3 mg/dL (7-18)
[2022-12-15 21:33] LABS: CREATININE 0.8 mg/dL (0.55-1.3)
[2022-12-15 21:34] LABS: BILIRUBIN,TOTAL 0.5 mg/dL (0.2-1); TOT PROT 6.4 g/dl (6.4-8.2)
[2022-12-16] MEDS: POLYETHYLENE GLYCOL (HEALTHYLAX) 3350 17 GM PACKET GT SCH ×4 (00:05→22:12)
[2022-12-16] MEDS: levETIRAcetam 500 MG/5 ML INJECTION VIAL IVPB SCH ×2 (00:05→09:54)
[2022-12-16] MEDS: BACITRACIN ZINC 15 GM TUBE TOPICAL OINTMENT TP SCH ×3 (00:05→22:12)
[2022-12-16] MEDS: ATORVASTATIN CA 80 MG TABLET (FP) PO SCH ×2 (00:05→22:13)
[2022-12-16] MEDS: INSULIN SLIDING SCALE (NOVOLOG) 1 VIAL SQ SCH ×5 (00:06→22:39)
[2022-12-16] MEDS: MIRTAZAPINE 15 MG TABLET (FP) PO SCH ×2 (00:06→22:13)
[2022-12-16] MEDS: METOPROLOL TARTRATE 25 MG TABLET (FP) PO SCH ×3 (00:06→22:13)
[2022-12-16] MEDS: MELATONIN 1 MG TABLET PO SCH ×2 (00:06→22:13)
[2022-12-16] MEDS: CEFAZOLIN 1 GM in DEXTROSE 5%-WATER 100 ML IVPB SCH ×2 (02:09→09:53)
[2022-12-16 08:22] LABS: BASO % 0.2 % (0-2.0); EOS % 0.5 % (0-4.5); HEMATOCRIT 21.8 % (32.4-45.2); HEMOGLOBIN 7.3 GM/dL (10.7-15.3); LYMPH % 15.7 % (8-40); MCHC 33.4 g/dl (32.0-36.0); MEAN CELL VOLUME 83.6 fl (80-96); MEAN PLT VOLUME 7.7 fl (7.5-11.1); MONO % 10.4 % (3.8-10.2); NEUT % 73.2 % (42.8-82.8); PLATELET COUNT 364 10^3/uL (134-434); RBC 2.61 M/mm3 (3.60-5.2); RDW 14.8 % (11.6-15.6); WHITE BLOOD COUNT 8.4 K/mm3 (4.0-10.0)
[2022-12-16 08:39] LABS: POTASSIUM 3.3 mmol/L (3.5-5.1)
[2022-12-16 08:48] LABS: BLOOD UREA NITROGEN 16.8 mg/dL (7-18); CALCIUM 8.7 mg/dL (8.5-10.1)
[2022-12-16 08:50] LABS: CREATININE 0.8 mg/dL (0.55-1.3)
[2022-12-16 08:52] LABS: BILIRUBIN,TOTAL 0.6 mg/dL (0.2-1); TOT PROT 5.9 g/dl (6.4-8.2)
[2022-12-16] MEDS: AMIODARONE HCL 200 MG TABLET PO SCH (09:55)
[2022-12-16] MEDS: LOSARTAN POTASSIUM 50 MG TABLET PO SCH (09:55)
[2022-12-16] MEDS: AMINO ACIDS 4.25%/D5W 1,000 ML IV SCH (09:55)
[2022-12-16] MEDS: PANTOPRAZOLE SOD 40 MG SUSPENSION PACKET PO SCH (09:55)
[2022-12-16] MEDS: levETIRAcetam 500 MG/5 ML ORAL SOLUTION (UNIT-DOSE CUPS) PEG SCH (22:38)
[2022-12-17] MEDS: POLYETHYLENE GLYCOL (HEALTHYLAX) 3350 17 GM PACKET GT SCH ×3 (06:10→22:09)
[2022-12-17] MEDS: INSULIN SLIDING SCALE (NOVOLOG) 1 VIAL SQ SCH ×4 (06:12→22:25)
[2022-12-17] MEDS: levETIRAcetam 500 MG/5 ML ORAL SOLUTION (UNIT-DOSE CUPS) PEG SCH ×2 (09:01→22:10)
[2022-12-17] MEDS: BACITRACIN ZINC 15 GM TUBE TOPICAL OINTMENT TP SCH ×2 (09:01→22:09)
[2022-12-17] MEDS: METOPROLOL TARTRATE 25 MG TABLET (FP) PO SCH ×2 (09:01→22:10)
[2022-12-17] MEDS: AMIODARONE HCL 200 MG TABLET PO SCH (09:01)
[2022-12-17] MEDS: LOSARTAN POTASSIUM 50 MG TABLET PO SCH (09:01)
[2022-12-17] MEDS: PANTOPRAZOLE SOD 40 MG SUSPENSION PACKET PO SCH (09:04)
[2022-12-17] MEDS ORDERED: INSULIN (NOVOLOG) ASPART 100 UNITS/ML 10ML VIAL ONE (11:07)
[2022-12-17] MEDS: FAMOTIDINE 20 MG/2.5 ML ORAL LIQUID PEG SCH (11:11)
[2022-12-17] MEDS: MIRTAZAPINE 15 MG TABLET (FP) PO SCH (22:10)
[2022-12-17] MEDS: ATORVASTATIN CA 80 MG TABLET (FP) PO SCH (22:10)
[2022-12-17] MEDS: MELATONIN 1 MG TABLET PO SCH (22:10)
[2022-12-18] MEDS: POLYETHYLENE GLYCOL (HEALTHYLAX) 3350 17 GM PACKET GT SCH ×3 (05:51→14:06)
[2022-12-18] MEDS: INSULIN SLIDING SCALE (NOVOLOG) 1 VIAL SQ SCH ×4 (06:24→21:55)
[2022-12-18 12:20] LABS: BASO % 0.4 % (0-2.0); EOS % 1.1 % (0-4.5); HEMATOCRIT 23.9 % (32.4-45.2); HEMOGLOBIN 8.3 GM/dL (10.7-15.3); LYMPH % 16.7 % (8-40); MCH 28.2 pg (25.7-33.7); MCHC 34.5 g/dl (32.0-36.0); MEAN CELL VOLUME 81.7 fl (80-96); MEAN PLT VOLUME 7.8 fl (7.5-11.1); MONO % 12.2 % (3.8-10.2); NEUT % 69.6 % (42.8-82.8); PLATELET COUNT 391 10^3/uL (134-434); RBC 2.93 M/mm3 (3.60-5.2); RDW 15.3 % (11.6-15.6)
[2022-12-18 12:49] LABS: POTASSIUM 3.5 mmol/L (3.5-5.1)
[2022-12-18 12:51] LABS: ALBUMIN 2.1 g/dl (3.4-5.0); CALCIUM 8.1 mg/dL (8.5-10.1)
[2022-12-18 12:55] LABS: CREATININE 0.8 mg/dL (0.55-1.3)
[2022-12-18 12:56] LABS: TOT PROT 6.2 g/dl (6.4-8.2)
[2022-12-18 12:57] LABS: BILIRUBIN,TOTAL 0.3 mg/dL (0.2-1)
[2022-12-18] MEDS ORDERED: ACETAMINOPHEN 650 MG/20.3 ML ORAL SOLUTION (CUPS) PO PRN (13:14)
[2022-12-18] MEDS: FAMOTIDINE 20 MG/2.5 ML ORAL LIQUID PEG SCH (13:38)
[2022-12-18] MEDS: levETIRAcetam 500 MG/5 ML ORAL SOLUTION (UNIT-DOSE CUPS) PEG SCH ×2 (13:38→21:23)
[2022-12-18] MEDS: AMIODARONE HCL 200 MG TABLET PO SCH (13:39)
[2022-12-18] MEDS: BACITRACIN ZINC 15 GM TUBE TOPICAL OINTMENT TP SCH ×2 (13:41→21:25)
[2022-12-18] MEDS: LOSARTAN POTASSIUM 50 MG TABLET PO SCH (13:41)
[2022-12-18] MEDS: METOPROLOL TARTRATE 25 MG TABLET (FP) PEG SCH ×2 (13:59→21:24)
[2022-12-18] MEDS: AMIODARONE HCL 200 MG TABLET PEG SCH (14:00)
[2022-12-18] MEDS: LOSARTAN POTASSIUM 50 MG TABLET PEG SCH (14:00)
[2022-12-18] MEDS: METOPROLOL TARTRATE 25 MG TABLET (FP) PO SCH (14:00)
[2022-12-18] MEDS: POLYETHYLENE GLYCOL (HEALTHYLAX) 3350 17 GM PACKET PEG SCH ×2 (14:06→21:23)
[2022-12-18] MEDS ORDERED: IRON SUCROSE INJECTION 200 MG in SODIUM CHLORIDE 90 ML IVPB ONE (14:45)
[2022-12-18] MEDS ORDERED: INSULIN (NOVOLOG) ASPART 100 UNITS/ML 10ML VIAL ONE ×2 (17:17→21:55)
[2022-12-18] MEDS: ACETAMINOPHEN 650 MG/20.3 ML ORAL SOLUTION (CUPS) PEG PRN (17:19)
[2022-12-18] MEDS ORDERED: ATORVASTATIN CA 80 MG TABLET (FP) PEG SCH (22:00)
[2022-12-18] MEDS ORDERED: MELATONIN 1 MG TABLET NR SCH (22:00)
[2022-12-18] MEDS ORDERED: MIRTAZAPINE 15 MG TABLET (FP) PEG SCH (22:00)
[2022-12-19] MEDS ORDERED: INSULIN (NOVOLOG) ASPART 100 UNITS/ML 10ML VIAL ONE ×4 (06:47→21:01)
[2022-12-19] MEDS: INSULIN SLIDING SCALE (NOVOLOG) 1 VIAL SQ SCH ×4 (06:59→21:28)
[2022-12-19] MEDS: POLYETHYLENE GLYCOL (HEALTHYLAX) 3350 17 GM PACKET PEG SCH ×3 (07:00→21:25)
[2022-12-19] MEDS: ACETAMINOPHEN 650 MG/20.3 ML ORAL SOLUTION (CUPS) PEG PRN ×2 (09:59→17:53)
[2022-12-19] MEDS: AMIODARONE HCL 200 MG TABLET PEG SCH (10:00)
[2022-12-19] MEDS: LOSARTAN POTASSIUM 50 MG TABLET PEG SCH (10:00)
[2022-12-19] MEDS: FAMOTIDINE 20 MG/2.5 ML ORAL LIQUID PEG SCH (10:00)
[2022-12-19] MEDS: METOPROLOL TARTRATE 25 MG TABLET (FP) PEG SCH ×2 (10:00→21:28)
[2022-12-19] MEDS: levETIRAcetam 500 MG/5 ML ORAL SOLUTION (UNIT-DOSE CUPS) PEG SCH ×2 (10:00→21:25)
[2022-12-19] MEDS: BACITRACIN ZINC 15 GM TUBE TOPICAL OINTMENT TP SCH ×2 (10:01→21:25)
[2022-12-19 10:44] VITALS: RESP 18
[2022-12-19] MEDS ORDERED: INSULIN (LEVEMIR) 100 UNITS/ML UNITS SQ SCH (22:00)
[2022-12-19] MEDS ORDERED: MIRTAZAPINE 15 MG TABLET (FP) PEG SCH (22:00)
[2022-12-19] MEDS ORDERED: ATORVASTATIN CA 80 MG TABLET (FP) PEG SCH (22:00)
[2022-12-19] MEDS ORDERED: MELATONIN 1 MG TABLET NR SCH (22:00)
[2022-12-20] MEDS: ACETAMINOPHEN 650 MG/20.3 ML ORAL SOLUTION (CUPS) PEG PRN (06:05)
[2022-12-20] MEDS: INSULIN SLIDING SCALE (NOVOLOG) 1 VIAL SQ SCH ×2 (06:06→11:21)
[2022-12-20] MEDS: POLYETHYLENE GLYCOL (HEALTHYLAX) 3350 17 GM PACKET PEG SCH (06:07)
[2022-12-20] MEDS ORDERED: FAMOTIDINE 20 MG/2.5 ML ORAL LIQUID PEG SCH (10:00)
[2022-12-20] MEDS ORDERED: AMIODARONE HCL 200 MG TABLET PEG SCH (10:00)
[2022-12-20] MEDS ORDERED: LOSARTAN POTASSIUM 50 MG TABLET PEG SCH (10:00)
[2022-12-20] MEDS: METOPROLOL TARTRATE 25 MG TABLET (FP) PEG SCH (10:05)
[2022-12-20] MEDS: levETIRAcetam 500 MG/5 ML ORAL SOLUTION (UNIT-DOSE CUPS) PEG SCH (10:05)
[2022-12-20] MEDS: BACITRACIN ZINC 15 GM TUBE TOPICAL OINTMENT TP SCH (10:18)
[2022-12-20 11:47] VITALS: BP 152/72; PULSE 91; TEMP 99.8
== END 2022-12-20 11:15 | DRG 682 ==
LOC: JER 11:36 → JERBED 16:00 → J4W 22:22 → OBSVTOIN 11-29 14:16 → JICU 12-02 21:21 → J4W 12-05 19:04 → J7W 12-19 13:40
PROVIDERS: ADMIT Internal Medicine; ATTEND Family Medicine
PROC: 0T9430Z Drainage of Left Kidney Pelvis with Drainage Device, Percutaneous Approach (ICD-10-PCS; 2022-12-13)
PROC: 0TJB8ZZ Inspection of Bladder, Via Natural or Artificial Opening Endoscopic (ICD-10-PCS; principal; 2022-12-13 12:00)
PROC: 0DH64UZ Insertion of Feeding Device into Stomach, Percutaneous Endoscopic Approach (ICD-10-PCS; 2022-12-15)
DX: N17.9 Acute kidney failure, unspecified (principal); G93.41 Metabolic encephalopathy; R53.2 Functional quadriplegia; N39.0 Urinary tract infection, site not specified; F32.2 Major depressive disorder, single episode, severe without psychotic features; E46 Unspecified protein-calorie malnutrition; N13.30 Unspecified hydronephrosis; E87.5 Hyperkalemia; E11.649 Type 2 diabetes mellitus with hypoglycemia without coma; I10 Essential (primary) hypertension; G40.909 Epilepsy, unspecified, not intractable, without status epilepticus; R33.9 Retention of urine, unspecified; G30.9 Alzheimer's disease, unspecified; F02.80 Dementia in other diseases classified elsewhere, unspecified severity, without behavioral disturbance, psychotic disturbance, mood disturbance, and anxiety; I48.0 Paroxysmal atrial fibrillation; E11.65 Type 2 diabetes mellitus with hyperglycemia; D64.9 Anemia, unspecified; E78.5 Hyperlipidemia, unspecified; R62.7 Adult failure to thrive; N13.9 Obstructive and reflux uropathy, unspecified; E11.22 Type 2 diabetes mellitus with diabetic chronic kidney disease; K44.9 Diaphragmatic hernia without obstruction or gangrene; N18.9 Chronic kidney disease, unspecified; E87.6 Hypokalemia; E83.42 Hypomagnesemia
CPT/HCPCS: 36415; 50390; 50432; 70450-TC; 70551-TC; 71045-TC-FY; 74176-TC; 76775-TC; 76856-TC; 80048; 80053; 81003; 82550; 82570; 82607; 82728; 82746; 82803; 82962; 83540; 83550; 83605; 83735; 83880; 83935; 84100; 84300; 84443; 84466; 84484; 85025; 85027; 85045; 85610; 86140; 86850; 86900; 86901; 87070; 87075; 87086; 87102; 87116; 87205; 87206; 87210; 87635; 93005; 93010; 93971; 94760; 95816; 99285-25; G0378; J0282; J1756

== ENCOUNTER 2023-02-23 16:44 | Inpatient (IN) | payer OTHER ==
[2023-02-23 18:51] LABS: BASO % 0.5 % (0-2.0); EOS % 0.5 % (0-4.5); HEMATOCRIT 28.8 % (32.4-45.2); HEMOGLOBIN 9.2 GM/dL (10.7-15.3); LYMPH % 35.3 % (8-40); MCH 26.9 pg (25.7-33.7); MEAN CELL VOLUME 84.1 fl (80-96); MEAN PLT VOLUME 6.6 fl (7.5-11.1); MONO % 11.9 % (3.8-10.2); NEUT % 51.8 % (42.8-82.8); PLATELET COUNT 347 10^3/uL (134-434); RBC 3.42 M/mm3 (3.60-5.2); RDW 19.7 % (11.6-15.6); WHITE BLOOD COUNT 8.8 K/mm3 (4.0-10.0)
[2023-02-23 18:53] LABS: EPI CELLS 25 /uL (0-25.1); HYALINE CASTS 1 /uL (0-3.1); URINE APPEARANCE TURBID; URINE BACTERIA >9,000 /uL (0-1359); URINE BILIRUBIN NEGATIVE (NEGATIVE); URINE COLOR YELLOW; URINE GLUCOSE (UA) NEGATIVE (NEGATIVE); URINE KETONE NEGATIVE (NEGATIVE); URINE LEUK ESTERASE 3+ (NEGATIVE); URINE NITRITE POSITIVE (NEGATIVE); URINE PROTEIN 2+ (NEGATIVE); URINE RBC 56 /uL (0-23.9); URINE UROBILINOGEN 0.2 mg/dL (0.2-1.0); URINE WBC 2287 /uL (0-25.8)
[2023-02-23] MEDS ORDERED: PIPERACILLIN/TAZOB 4.5 GM 4.5 GM in DEXTROSE 5%-WATER 100 ML IVPB ONE (18:55)
[2023-02-23] MEDS ORDERED: PIPERACILLIN/TAZOB 4.5 GM 4.5 GM/100 ML BAG IVPB ONE (19:06)
[2023-02-23 19:32] LABS: POTASSIUM 3.4 mmol/L (3.5-5.1)
[2023-02-23 19:36] LABS: ALBUMIN 1.6 g/dl (3.4-5.0); BLOOD UREA NITROGEN 8.8 mg/dL (7-18)
[2023-02-23 19:39] LABS: CREATININE 0.7 mg/dL (0.55-1.3)
[2023-02-23 19:40] LABS: BILIRUBIN,TOTAL 0.7 mg/dL (0.2-1); TOT PROT 6.2 g/dl (6.4-8.2)
[2023-02-23] MEDS ORDERED: POTASSIUM CHLORIDE ORAL LIQUID 20 MEQ/15 ML PO ONE (19:49)
[2023-02-23] MEDS ORDERED: POTASSIUM CHLORIDE ORAL LIQUID 20 MEQ/15 ML ONE (22:34)
[2023-02-24] MEDS ORDERED: ACETAMINOPHEN 650 MG/20.3 ML ORAL SOLUTION (CUPS) GT PRN (06:41)
[2023-02-24] MEDS ORDERED: PIPERACILLIN/TAZOB 3.375 GM 3.375 GM in DEXTROSE 5%-WATER - 50 ML IVPB SCH (10:00)
[2023-02-24] MEDS ORDERED: PATIENT'S OWN MEDICATION (NON-FORMULARY) (Brimonidine Tartrate/Timolol [Combigan 0.2%-0.5% OU SCH (10:00)
[2023-02-24 10:16] LABS: BASO % 0.4 % (0-2.0); EOS % 0.4 % (0-4.5); HEMATOCRIT 26.6 % (32.4-45.2); HEMOGLOBIN 8.7 GM/dL (10.7-15.3); LYMPH % 30.3 % (8-40); MCH 27.1 pg (25.7-33.7); MCHC 32.5 g/dl (32.0-36.0); MEAN CELL VOLUME 83.2 fl (80-96); MONO % 11.6 % (3.8-10.2); NEUT % 57.3 % (42.8-82.8); PLATELET COUNT 390 10^3/uL (134-434); RDW 19.6 % (11.6-15.6); WHITE BLOOD COUNT 8.9 K/mm3 (4.0-10.0)
[2023-02-24] MEDS: PIPERACILLIN/TAZOB 3.375 GM 3.375 GM in DEXTROSE 5%-WATER - 50 ML IVPB SCH ×2 (12:26→19:04)
[2023-02-24] MEDS: levETIRAcetam 500 MG/5 ML ORAL SOLUTION (UNIT-DOSE CUPS) GT SCH ×2 (12:27→21:24)
[2023-02-24] MEDS: LOSARTAN POTASSIUM 50 MG TABLET GT SCH (12:27)
[2023-02-24] MEDS: TIMOLOL 0.5% OPHTHALMIC SOL 5 ML BOTTLE OU SCH ×2 (12:27→21:25)
[2023-02-24] MEDS: BRIMONIDINE TARTRATE 0.2% OPHTHALMIC 5 ML BOTTLE OU SCH ×2 (12:27→21:25)
[2023-02-24] MEDS: FERROUS SO4 300 MG/5 ML ORAL SOLN UNIT DOSE CUPS GT SCH (12:27)
[2023-02-24] MEDS: AMIODARONE HCL 200 MG TABLET GT SCH (12:27)
[2023-02-24] MEDS: METOPROLOL TARTRATE 25 MG TABLET (FP) GT SCH ×2 (12:27→21:24)
[2023-02-24 12:54] LABS: ALBUMIN 1.7 g/dl (3.4-5.0); BILIRUBIN,TOTAL 0.2 mg/dL (0.2-1); BLOOD UREA NITROGEN 9.8 mg/dL (7-18); CREATININE 0.8 mg/dL (0.55-1.3); POTASSIUM 3.6 mmol/L (3.5-5.1); TOT PROT 6.4 g/dl (6.4-8.2)
[2023-02-24] MEDS: INSULIN SLIDING SCALE (NOVOLOG) 1 VIAL SQ SCH ×3 (13:12→22:26)
[2023-02-24] MEDS: FAMOTIDINE 20 MG/2.5 ML ORAL LIQUID GT SCH (13:14)
[2023-02-24] MEDS: ATORVASTATIN CA 20 MG TABLET (FP) GT SCH (21:24)
[2023-02-24] MEDS: MELATONIN 1 MG TABLET GT SCH (21:24)
[2023-02-24] MEDS: MIRTAZAPINE 15 MG TABLET (FP) GT SCH (21:24)
[2023-02-25] MEDS: PIPERACILLIN/TAZOB 3.375 GM 3.375 GM in DEXTROSE 5%-WATER - 50 ML IVPB SCH ×3 (01:58→17:25)
[2023-02-25] MEDS ORDERED: DEXTROSE 50%-WATER 25 GM/50 ML DISP.SYRIN IVPUSH ONE (05:10)
[2023-02-25] MEDS: INSULIN SLIDING SCALE (NOVOLOG) 1 VIAL SQ SCH ×4 (06:21→22:33)
[2023-02-25] MEDS ORDERED: POLYETHYLENE GLYCOL (HEALTHYLAX) 3350 17 GM PACKET PO SCH (10:00)
[2023-02-25] MEDS: levETIRAcetam 500 MG/5 ML ORAL SOLUTION (UNIT-DOSE CUPS) GT SCH ×2 (10:53→22:13)
[2023-02-25] MEDS: AMIODARONE HCL 200 MG TABLET GT SCH (10:53)
[2023-02-25] MEDS: FERROUS SO4 300 MG/5 ML ORAL SOLN UNIT DOSE CUPS GT SCH (10:53)
[2023-02-25] MEDS: LOSARTAN POTASSIUM 50 MG TABLET GT SCH (10:53)
[2023-02-25] MEDS: METOPROLOL TARTRATE 25 MG TABLET (FP) GT SCH ×2 (10:54→22:13)
[2023-02-25] MEDS: FAMOTIDINE 20 MG/2.5 ML ORAL LIQUID GT SCH (10:54)
[2023-02-25] MEDS: BRIMONIDINE TARTRATE 0.2% OPHTHALMIC 5 ML BOTTLE OU SCH ×2 (10:55→22:34)
[2023-02-25] MEDS: TIMOLOL 0.5% OPHTHALMIC SOL 5 ML BOTTLE OU SCH ×2 (10:55→22:34)
[2023-02-25] MEDS: AMINO ACIDS/PROTEIN HYDROLYS 30 ML LIQUID.PKT PO SCH (14:45)
[2023-02-25] MEDS: MIRTAZAPINE 15 MG TABLET (FP) GT SCH (22:13)
[2023-02-25] MEDS: MELATONIN 1 MG TABLET GT SCH (22:13)
[2023-02-25] MEDS: ATORVASTATIN CA 20 MG TABLET (FP) GT SCH (22:13)
[2023-02-26] MEDS: PIPERACILLIN/TAZOB 3.375 GM 3.375 GM in DEXTROSE 5%-WATER - 50 ML IVPB SCH ×4 (01:33→22:45)
[2023-02-26] MEDS: INSULIN SLIDING SCALE (NOVOLOG) 1 VIAL SQ SCH ×4 (06:04→22:57)
[2023-02-26] MEDS: AMINO ACIDS/PROTEIN HYDROLYS 30 ML LIQUID.PKT PO SCH (08:05)
[2023-02-26] MEDS ORDERED: ASCORBIC ACID 250 MG TABLET (FP) PO SCH (10:00)
[2023-02-26 10:38] LABS: HEMATOCRIT 27.6 % (32.4-45.2); HEMOGLOBIN 9.3 GM/dL (10.7-15.3); MCH 27.5 pg (25.7-33.7); MCHC 33.6 g/dl (32.0-36.0); MEAN PLT VOLUME 6.9 fl (7.5-11.1); PLATELET COUNT 346 10^3/uL (134-434); RBC 3.37 M/mm3 (3.60-5.2); RDW 19.8 % (11.6-15.6); WHITE BLOOD COUNT 6.7 K/mm3 (4.0-10.0)
[2023-02-26] MEDS ORDERED: PNEUMOC 20-VAL CONJ-DIP CRM/PF 0.5 ML SYRINGE IM ONE (11:00)
[2023-02-26 11:02] LABS: ALBUMIN 1.7 g/dl (3.4-5.0)
[2023-02-26 11:03] LABS: BLOOD UREA NITROGEN 7.3 mg/dL (7-18)
[2023-02-26 11:05] LABS: CREATININE 0.9 mg/dL (0.55-1.3)
[2023-02-26 11:07] LABS: BILIRUBIN,TOTAL 0.5 mg/dL (0.2-1); PREALBUMIN 7.6 mg/dl (20-40); TOT PROT 6.6 g/dl (6.4-8.2)
[2023-02-26] MEDS: METOPROLOL TARTRATE 25 MG TABLET (FP) GT SCH (11:10)
[2023-02-26] MEDS: AMIODARONE HCL 200 MG TABLET GT SCH (11:10)
[2023-02-26] MEDS: LOSARTAN POTASSIUM 50 MG TABLET GT SCH (11:11)
[2023-02-26] MEDS: FERROUS SO4 300 MG/5 ML ORAL SOLN UNIT DOSE CUPS GT SCH (11:11)
[2023-02-26] MEDS: levETIRAcetam 500 MG/5 ML ORAL SOLUTION (UNIT-DOSE CUPS) GT SCH (11:11)
[2023-02-26] MEDS: BRIMONIDINE TARTRATE 0.2% OPHTHALMIC 5 ML BOTTLE OU SCH ×2 (11:17→22:00)
[2023-02-26] MEDS: TIMOLOL 0.5% OPHTHALMIC SOL 5 ML BOTTLE OU SCH ×2 (11:17→22:00)
[2023-02-26] MEDS ORDERED: IRON SUCROSE INJECTION 200 MG in SODIUM CHLORIDE 90 ML IVPB ONE (14:00)
[2023-02-26] MEDS: KCL 10 MEQ IVPB 10 MEQ/100 ML INFUS.BAG IVPB SCH ×2 (17:00→22:44)
[2023-02-26] MEDS ORDERED: METOPROLOL TARTRATE 5 MG/5 ML VIAL IVPUSH PRN (18:31)
[2023-02-26] MEDS ORDERED: D5-1/2NS+20 MEQ KCL - 20 MEQ/1,000 ML INFUS.BAG IV SCH (18:45)
[2023-02-26] MEDS: levETIRAcetam 500 MG/5 ML INJECTION VIAL IVPB SCH (22:41)
[2023-02-26] MEDS: ATORVASTATIN CA 20 MG TABLET (FP) GT SCH (22:41)
[2023-02-26] MEDS: MIRTAZAPINE 15 MG TABLET (FP) GT SCH (22:41)
[2023-02-26] MEDS ORDERED: KCL 10 MEQ IVPB 10 MEQ/100 ML INFUS.BAG IVPB SCH (22:45)
[2023-02-26] MEDS ORDERED: DEXTROSE 50%-WATER 25 GM/50 ML DISP.SYRIN IVPUSH ONE (23:02)
[2023-02-27] MEDS: PIPERACILLIN/TAZOB 3.375 GM 3.375 GM in DEXTROSE 5%-WATER - 50 ML IVPB SCH ×3 (03:41→17:27)
[2023-02-27] MEDS: FAMOTIDINE 20 MG/2.5 ML ORAL LIQUID GT SCH (08:49)
[2023-02-27] MEDS: levETIRAcetam 500 MG/5 ML INJECTION VIAL IVPB SCH ×2 (09:21→21:49)
[2023-02-27] MEDS ORDERED: PANTOPRAZOLE SODIUM 40 MG VIAL IVPUSH SCH (10:00)
[2023-02-27] MEDS ORDERED: METOPROLOL TARTRATE 5 MG/5 ML VIAL IVPUSH PRN (12:09)
[2023-02-27] MEDS: D5-1/2NS+20 MEQ KCL - 20 MEQ/1,000 ML INFUS.BAG IV SCH (12:36)
[2023-02-27] MEDS: BRIMONIDINE TARTRATE 0.2% OPHTHALMIC 5 ML BOTTLE OU SCH ×3 (12:37→21:53)
[2023-02-27] MEDS: TIMOLOL 0.5% OPHTHALMIC SOL 5 ML BOTTLE OU SCH ×3 (12:38→22:09)
[2023-02-27] MEDS: AMINO ACIDS 4.25%/D5W 1,000 ML IV SCH (15:58)
[2023-02-27] MEDS: INSULIN SLIDING SCALE (NOVOLOG) 1 VIAL SQ SCH ×2 (17:44→22:08)
[2023-02-27] MEDS ORDERED: INSULIN (NOVOLOG) ASPART 100 UNITS/ML 10ML VIAL ONE (21:03)
[2023-02-27] MEDS: FAT EMULSION/OLIVE/SOY/PHOSPHO 500 ML IV SCH (21:50)
[2023-02-27] MEDS: MIRTAZAPINE 15 MG TABLET (FP) GT SCH (21:52)
[2023-02-27] MEDS: ATORVASTATIN CA 20 MG TABLET (FP) GT SCH (21:52)
[2023-02-27] MEDS ORDERED: FAT EMULSION/OLIVE/SOY (CLINOLIPID) 500 ML EMULSION IV SCH (22:00)
[2023-02-27 22:17] VITALS: BMI 28.2
[2023-02-28] MEDS: PIPERACILLIN/TAZOB 3.375 GM 3.375 GM in DEXTROSE 5%-WATER - 50 ML IVPB SCH ×3 (02:05→17:44)
[2023-02-28] MEDS ORDERED: ACETAMINOPHEN 1000 MG/100 ML BAG IVPB ONE ×2 (02:21→21:55)
[2023-02-28] MEDS: AMINO ACIDS 4.25%/D5W 1,000 ML IV SCH ×2 (02:30→15:32)
[2023-02-28] MEDS: INSULIN SLIDING SCALE (NOVOLOG) 1 VIAL SQ SCH ×4 (06:29→22:12)
[2023-02-28] MEDS: levETIRAcetam 500 MG/5 ML INJECTION VIAL IVPB SCH ×2 (10:00→22:00)
[2023-02-28] MEDS: PANTOPRAZOLE SODIUM 40 MG VIAL IVPUSH SCH (10:01)
[2023-02-28] MEDS: BRIMONIDINE TARTRATE 0.2% OPHTHALMIC 5 ML BOTTLE OU SCH ×2 (10:01→22:13)
[2023-02-28] MEDS: TIMOLOL 0.5% OPHTHALMIC SOL 5 ML BOTTLE OU SCH ×2 (10:40→22:13)
[2023-02-28] MEDS ORDERED: INSULIN (NOVOLOG) ASPART 100 UNITS/ML 10ML VIAL ONE (11:02)
[2023-02-28] MEDS: D5-1/2NS+20 MEQ KCL - 20 MEQ/1,000 ML INFUS.BAG IV SCH (15:57)
[2023-02-28] MEDS: FAT EMULSION/OLIVE/SOY/PHOSPHO 500 ML IV SCH (21:59)
[2023-02-28] MEDS: ATORVASTATIN CA 20 MG TABLET (FP) GT SCH (22:00)
[2023-02-28] MEDS: MIRTAZAPINE 15 MG TABLET (FP) GT SCH (22:00)
[2023-03-01] MEDS: AMINO ACIDS 4.25%/D5W 1,000 ML IV SCH (02:29)
[2023-03-01] MEDS: PIPERACILLIN/TAZOB 3.375 GM 3.375 GM in DEXTROSE 5%-WATER - 50 ML IVPB SCH ×3 (02:36→17:31)
[2023-03-01] MEDS: INSULIN SLIDING SCALE (NOVOLOG) 1 VIAL SQ SCH ×4 (06:10→21:30)
[2023-03-01 07:59] LABS: INR 1.09 (0.83-1.09); PROTHROMBIN TIME (PATIENT) 12.6 SEC (9.7-13.0)
[2023-03-01] MEDS: PANTOPRAZOLE SODIUM 40 MG VIAL IVPUSH SCH (09:38)
[2023-03-01] MEDS: levETIRAcetam 500 MG/5 ML INJECTION VIAL IVPB SCH ×2 (09:38→21:29)
[2023-03-01] MEDS: BRIMONIDINE TARTRATE 0.2% OPHTHALMIC 5 ML BOTTLE OU SCH ×2 (09:39→21:28)
[2023-03-01] MEDS: TIMOLOL 0.5% OPHTHALMIC SOL 5 ML BOTTLE OU SCH ×2 (10:15→21:29)
[2023-03-01 11:31] LABS: BASO % 0.4 % (0-2.0); EOS % 1.4 % (0-4.5); HEMATOCRIT 27.6 % (32.4-45.2); HEMOGLOBIN 8.9 GM/dL (10.7-15.3); LYMPH % 32.7 % (8-40); MCH 26.8 pg (25.7-33.7); MCHC 32.2 g/dl (32.0-36.0); MEAN PLT VOLUME 7.2 fl (7.5-11.1); MONO % 9.9 % (3.8-10.2); NEUT % 55.6 % (42.8-82.8); PLATELET COUNT 311 10^3/uL (134-434); RBC 3.33 M/mm3 (3.60-5.2); RDW 19.2 % (11.6-15.6); WHITE BLOOD COUNT 5.7 K/mm3 (4.0-10.0)
[2023-03-01 11:35] LABS: INR 1.08 (0.83-1.09); PROTHROMBIN TIME (PATIENT) 12.5 SEC (9.7-13.0)
[2023-03-01 11:38] LABS: ACTIVATED PTT 33.5 SECONDS (25.2-36.5)
[2023-03-01 12:00] LABS: CHLORIDE 103 mmol/L (98-107); SODIUM 140 mmol/L (136-145)
[2023-03-01 12:02] LABS: CALCIUM 7.7 mg/dL (8.5-10.1)
[2023-03-01 12:03] LABS: BLOOD UREA NITROGEN 8.9 mg/dL (7-18); CO2 30 mmol/L (21-32); GLUCOSE,RANDOM 122 mg/dL (74-106)
[2023-03-01 12:06] LABS: ANION GAP 7 MMOL/L (8-16); CREATININE 0.7 mg/dL (0.55-1.3); POTASSIUM 2.8 mmol/L (3.5-5.1)
[2023-03-01] MEDS: KCL 10 MEQ IVPB 10 MEQ/100 ML INFUS.BAG IVPB SCH ×2 (13:06→14:20)
[2023-03-01] MEDS: D5-1/2NS+20 MEQ KCL - 20 MEQ/1,000 ML INFUS.BAG IV SCH (14:27)
[2023-03-01] MEDS: D5-1/2NS+40 MEQ KCL - 40 MEQ/1,000 ML INFUS.BAG IV SCH (15:34)
[2023-03-01] MEDS ORDERED: ENALAPRILAT DIHYDRATE 1.25 MG/1 ML VIAL IVPB ONE (17:57)
[2023-03-01 19:49] LABS: POTASSIUM 3.3 mmol/L (3.5-5.1)
[2023-03-01 19:50] LABS: CALCIUM 7.9 mg/dL (8.5-10.1)
[2023-03-01 19:54] LABS: CREATININE 0.8 mg/dL (0.55-1.3)
[2023-03-01] MEDS: FAT EMULSION/OLIVE/SOY/PHOSPHO 500 ML IV SCH ×2 (21:28→23:15)
[2023-03-01] MEDS: ATORVASTATIN CA 20 MG TABLET (FP) GT SCH (21:29)
[2023-03-01] MEDS: MIRTAZAPINE 15 MG TABLET (FP) GT SCH (21:29)
[2023-03-02] MEDS: PIPERACILLIN/TAZOB 3.375 GM 3.375 GM in DEXTROSE 5%-WATER - 50 ML IVPB SCH ×3 (02:52→17:38)
[2023-03-02] MEDS: INSULIN SLIDING SCALE (NOVOLOG) 1 VIAL SQ SCH ×4 (06:19→23:38)
[2023-03-02 08:36] LABS: POTASSIUM 3.5 mmol/L (3.5-5.1)
[2023-03-02 08:46] LABS: BLOOD UREA NITROGEN 5.4 mg/dL (7-18); CALCIUM 8.2 mg/dL (8.5-10.1)
[2023-03-02 08:49] LABS: CREATININE 0.6 mg/dL (0.55-1.3)
[2023-03-02] MEDS: KCL 10 MEQ IVPB 10 MEQ/100 ML INFUS.BAG IVPB SCH ×2 (09:26→11:14)
[2023-03-02] MEDS: PANTOPRAZOLE SODIUM 40 MG VIAL IVPUSH SCH (09:30)
[2023-03-02] MEDS: BRIMONIDINE TARTRATE 0.2% OPHTHALMIC 5 ML BOTTLE OU SCH ×2 (09:31→21:25)
[2023-03-02] MEDS: TIMOLOL 0.5% OPHTHALMIC SOL 5 ML BOTTLE OU SCH ×2 (09:31→21:25)
[2023-03-02] MEDS: levETIRAcetam 500 MG/5 ML INJECTION VIAL IVPB SCH ×2 (11:15→21:23)
[2023-03-02] MEDS ORDERED: INSULIN (NOVOLOG) ASPART 100 UNITS/ML 10ML VIAL ONE (11:22)
[2023-03-02] MEDS: D5-1/2NS+40 MEQ KCL - 40 MEQ/1,000 ML INFUS.BAG IV SCH (13:06)
[2023-03-02] MEDS: ENALAPRILAT DIHYDRATE 1.25 MG/1 ML VIAL IVPB SCH ×2 (17:43→21:21)
[2023-03-02] MEDS: ATORVASTATIN CA 20 MG TABLET (FP) GT SCH (21:24)
[2023-03-02] MEDS: MIRTAZAPINE 15 MG TABLET (FP) GT SCH (21:24)
[2023-03-02] MEDS: FAT EMULSION/OLIVE/SOY/PHOSPHO 500 ML IV SCH (21:25)
[2023-03-03] MEDS: PIPERACILLIN/TAZOB 3.375 GM 3.375 GM in DEXTROSE 5%-WATER - 50 ML IVPB SCH ×3 (03:08→17:38)
[2023-03-03] MEDS: ENALAPRILAT DIHYDRATE 1.25 MG/1 ML VIAL IVPB SCH ×4 (04:05→21:57)
[2023-03-03] MEDS: INSULIN SLIDING SCALE (NOVOLOG) 1 VIAL SQ SCH ×4 (06:07→23:09)
[2023-03-03 09:09] LABS: BASO % 0.7 % (0-2.0); EOS % 2.1 % (0-4.5); HEMOGLOBIN 10.3 GM/dL (10.7-15.3); LYMPH % 38.2 % (8-40); MCHC 34.2 g/dl (32.0-36.0); MEAN CELL VOLUME 81.7 fl (80-96); MEAN PLT VOLUME 7.2 fl (7.5-11.1); MONO % 10.9 % (3.8-10.2); NEUT % 48.1 % (42.8-82.8); PLATELET COUNT 308 10^3/uL (134-434); RBC 3.67 M/mm3 (3.60-5.2); RDW 19.5 % (11.6-15.6); WHITE BLOOD COUNT 5.6 K/mm3 (4.0-10.0)
[2023-03-03 09:36] LABS: ALBUMIN 1.8 g/dl (3.4-5.0); BLOOD UREA NITROGEN 3.1 mg/dL (7-18); CALCIUM 8.7 mg/dL (8.5-10.1)
[2023-03-03 09:39] LABS: CREATININE 0.7 mg/dL (0.55-1.3)
[2023-03-03 09:41] LABS: BILIRUBIN,TOTAL 0.4 mg/dL (0.2-1); TOT PROT 7.1 g/dl (6.4-8.2)
[2023-03-03] MEDS: levETIRAcetam 500 MG/5 ML INJECTION VIAL IVPB SCH ×2 (10:59→21:56)
[2023-03-03] MEDS: BRIMONIDINE TARTRATE 0.2% OPHTHALMIC 5 ML BOTTLE OU SCH ×2 (10:59→21:58)
[2023-03-03] MEDS: PANTOPRAZOLE SODIUM 40 MG VIAL IVPUSH SCH (11:00)
[2023-03-03] MEDS: TIMOLOL 0.5% OPHTHALMIC SOL 5 ML BOTTLE OU SCH ×2 (11:02→21:58)
[2023-03-03] MEDS ORDERED: ACETAMINOPHEN 325 MG TABLET (FP) PO PRN (13:14)
[2023-03-03] MEDS: D5-1/2NS+40 MEQ KCL - 40 MEQ/1,000 ML INFUS.BAG IV SCH (13:50)
[2023-03-03] MEDS: NIFEdipine E.R. 30 MG TABLET PO SCH (13:57)
[2023-03-03] MEDS ORDERED: INSULIN (NOVOLOG) ASPART 100 UNITS/ML 10ML VIAL ONE (16:49)
[2023-03-03] MEDS: ATORVASTATIN CA 20 MG TABLET (FP) GT SCH (21:56)
[2023-03-03] MEDS: FAT EMULSION/OLIVE/SOY/PHOSPHO 500 ML IV SCH (21:56)
[2023-03-03] MEDS: MIRTAZAPINE 15 MG TABLET (FP) GT SCH (21:56)
[2023-03-04] MEDS: FAT EMULSION/OLIVE/SOY/PHOSPHO 500 ML IV SCH (01:24)
[2023-03-04] MEDS: PIPERACILLIN/TAZOB 3.375 GM 3.375 GM in DEXTROSE 5%-WATER - 50 ML IVPB SCH ×3 (01:44→17:56)
[2023-03-04] MEDS: ENALAPRILAT DIHYDRATE 1.25 MG/1 ML VIAL IVPB SCH ×4 (03:00→21:41)
[2023-03-04] MEDS ORDERED: INSULIN (NOVOLOG) ASPART 100 UNITS/ML 10ML VIAL ONE ×2 (07:38→22:00)
[2023-03-04] MEDS: INSULIN SLIDING SCALE (NOVOLOG) 1 VIAL SQ SCH ×4 (07:40→22:01)
[2023-03-04] MEDS: levETIRAcetam 500 MG/5 ML INJECTION VIAL IVPB SCH ×2 (10:24→21:41)
[2023-03-04] MEDS: BRIMONIDINE TARTRATE 0.2% OPHTHALMIC 5 ML BOTTLE OU SCH ×2 (10:24→21:42)
[2023-03-04] MEDS: NIFEdipine E.R. 30 MG TABLET PO SCH (10:24)
[2023-03-04] MEDS: PANTOPRAZOLE SODIUM 40 MG VIAL IVPUSH SCH (10:24)
[2023-03-04] MEDS: TIMOLOL 0.5% OPHTHALMIC SOL 5 ML BOTTLE OU SCH ×2 (10:25→21:43)
[2023-03-04 11:58] LABS: BASO % 0.3 % (0-2.0); EOS % 1.7 % (0-4.5); HEMATOCRIT 31.4 % (32.4-45.2); HEMOGLOBIN 10.5 GM/dL (10.7-15.3); LYMPH % 25.6 % (8-40); MCH 27.4 pg (25.7-33.7); MCHC 33.3 g/dl (32.0-36.0); MEAN CELL VOLUME 82.2 fl (80-96); MEAN PLT VOLUME 7.4 fl (7.5-11.1); MONO % 7.7 % (3.8-10.2); NEUT % 64.7 % (42.8-82.8); PLATELET COUNT 362 10^3/uL (134-434); RBC 3.82 M/mm3 (3.60-5.2); RDW 19.4 % (11.6-15.6); WHITE BLOOD COUNT 9.5 K/mm3 (4.0-10.0)
[2023-03-04 12:14] LABS: POTASSIUM 4.5 mmol/L (3.5-5.1)
[2023-03-04 12:18] LABS: BLOOD UREA NITROGEN 6.4 mg/dL (7-18); CALCIUM 8.3 mg/dL (8.5-10.1)
[2023-03-04 12:23] LABS: CREATININE 0.9 mg/dL (0.55-1.3)
[2023-03-04] MEDS: D5-1/2NS+40 MEQ KCL - 40 MEQ/1,000 ML INFUS.BAG IV SCH ×2 (14:12→16:57)
[2023-03-04] MEDS: MIRTAZAPINE 15 MG TABLET (FP) GT SCH (21:42)
[2023-03-04] MEDS: ATORVASTATIN CA 20 MG TABLET (FP) GT SCH (21:42)
[2023-03-05] MEDS: ENALAPRILAT DIHYDRATE 1.25 MG/1 ML VIAL IVPB SCH ×4 (03:10→22:35)
[2023-03-05] MEDS: PIPERACILLIN/TAZOB 3.375 GM 3.375 GM in DEXTROSE 5%-WATER - 50 ML IVPB SCH ×3 (03:10→17:49)
[2023-03-05] MEDS: INSULIN SLIDING SCALE (NOVOLOG) 1 VIAL SQ SCH ×4 (06:32→22:36)
[2023-03-05] MEDS: PANTOPRAZOLE SODIUM 40 MG VIAL IVPUSH SCH (09:59)
[2023-03-05] MEDS: levETIRAcetam 500 MG/5 ML INJECTION VIAL IVPB SCH ×2 (09:59→22:35)
[2023-03-05] MEDS: TIMOLOL 0.5% OPHTHALMIC SOL 5 ML BOTTLE OU SCH ×2 (10:00→22:41)
[2023-03-05] MEDS: NIFEdipine E.R. 30 MG TABLET PO SCH (10:00)
[2023-03-05] MEDS: BRIMONIDINE TARTRATE 0.2% OPHTHALMIC 5 ML BOTTLE OU SCH ×2 (10:00→22:41)
[2023-03-05] MEDS ORDERED: FENTANYL CITRATE/PF 50 MCG/ML VIAL ONE ×3 (10:48→13:32)
[2023-03-05] MEDS ORDERED: MIDAZOLAM HCL 2 MG/2 ML SINGLE DOSE VIAL ONE (10:48)
[2023-03-05] MEDS ORDERED: ROCURONIUM BROMIDE 50 MG/5 ML SYRINGE ONE ×2 (10:48→12:32)
[2023-03-05] MEDS ORDERED: PROPOFOL 20 ML ONE (10:48)
[2023-03-05] MEDS ORDERED: BUPIVACAINE HCL/PF 0.5% (5MG/ML) 10 ML VIAL ONE (11:04)
[2023-03-05] MEDS ORDERED: LIDOCAINE HCL/PF 2% SDV 5ML VIAL ONE (11:26)
[2023-03-05] MEDS ORDERED: ceFAZolin SODIUM 1 GM VIAL ONE (12:01)
[2023-03-05] MEDS ORDERED: ceFAZolin SODIUM 1 GM VIAL IVPB ONE (12:04)
[2023-03-05] MEDS ORDERED: BUPIVACAINE HCL/PF 0.25% (2.5MG/ML) 10 ML VIAL IJ ONE ×2 (12:29)
[2023-03-05] MEDS ORDERED: DEXAMETHASONE SOD PHOSPHATE 4 MG/1 ML VIAL ONE (12:58)
[2023-03-05] MEDS ORDERED: ONDANSETRON 4 MG/2 ML VIAL ONE ×2 (12:58→13:26)
[2023-03-05] MEDS ORDERED: NEOSTIGMINE METHYLSULFATE 0.5 MG/1 ML - 10 ML MDV ONE (13:26)
[2023-03-05] MEDS ORDERED: GLYCOPYRROLATE 0.2 MG/1 ML VIAL ONE ×2 (13:26)
[2023-03-05] MEDS ORDERED: METOPROLOL TARTRATE 5 MG/5 ML VIAL IVPUSH PRN (15:35)
[2023-03-05] MEDS ORDERED: traMADol HCL 50 MG TABLET PO PRN (15:35)
[2023-03-05] MEDS: D5-1/2NS+40 MEQ KCL - 40 MEQ/1,000 ML INFUS.BAG IV SCH (17:48)
[2023-03-05] MEDS: ACETAMINOPHEN 1000 MG/100 ML BAG IVPB SCH (21:35)
[2023-03-05] MEDS: MIRTAZAPINE 15 MG TABLET (FP) PO SCH (21:40)
[2023-03-05] MEDS: ATORVASTATIN CA 20 MG TABLET (FP) PO SCH (21:53)
[2023-03-05] MEDS ORDERED: INSULIN (NOVOLOG) ASPART 100 UNITS/ML 10ML VIAL ONE (22:36)
[2023-03-06] MEDS: PIPERACILLIN/TAZOB 3.375 GM 3.375 GM in DEXTROSE 5%-WATER - 50 ML IVPB SCH ×3 (01:15→17:04)
[2023-03-06] MEDS: ENALAPRILAT DIHYDRATE 1.25 MG/1 ML VIAL IVPB SCH ×2 (03:59→09:51)
[2023-03-06] MEDS: ACETAMINOPHEN 1000 MG/100 ML BAG IVPB SCH ×3 (04:01→14:34)
[2023-03-06] MEDS: INSULIN SLIDING SCALE (NOVOLOG) 1 VIAL SQ SCH ×4 (06:31→21:46)
[2023-03-06 06:58] LABS: BASO % 0.3 % (0-2.0); EOS % 0.1 % (0-4.5); HEMATOCRIT 30.7 % (32.4-45.2); HEMOGLOBIN 9.7 GM/dL (10.7-15.3); LYMPH % 25.8 % (8-40); MCH 26.6 pg (25.7-33.7); MCHC 31.7 g/dl (32.0-36.0); MEAN CELL VOLUME 84.1 fl (80-96); MEAN PLT VOLUME 7.4 fl (7.5-11.1); NEUT % 64.8 % (42.8-82.8); PLATELET COUNT 381 10^3/uL (134-434); RBC 3.65 M/mm3 (3.60-5.2); RDW 19.4 % (11.6-15.6); WHITE BLOOD COUNT 8.7 K/mm3 (4.0-10.0)
[2023-03-06 07:09] LABS: POTASSIUM 4.8 mmol/L (3.5-5.1)
[2023-03-06 07:15] LABS: ALBUMIN 1.8 g/dl (3.4-5.0); BLOOD UREA NITROGEN 9.5 mg/dL (7-18)
[2023-03-06 07:18] LABS: BILIRUBIN,TOTAL 0.3 mg/dL (0.2-1); CREATININE 0.8 mg/dL (0.55-1.3)
[2023-03-06 07:20] LABS: TOT PROT 6.9 g/dl (6.4-8.2)
[2023-03-06] MEDS ORDERED: PANTOPRAZOLE SODIUM 40 MG VIAL IVPUSH SCH (10:00)
[2023-03-06] MEDS: BRIMONIDINE TARTRATE 0.2% OPHTHALMIC 5 ML BOTTLE OU SCH ×2 (10:51→21:35)
[2023-03-06] MEDS: APIXABAN 5 MG TABLET PO SCH ×2 (10:51→21:36)
[2023-03-06] MEDS: NIFEdipine E.R. 30 MG TABLET PO SCH (10:51)
[2023-03-06] MEDS: MULTIVITAMINS (DAILY MVI) TABLET (FP) PO SCH (10:51)
[2023-03-06] MEDS: levETIRAcetam 500 MG/5 ML INJECTION VIAL IVPB SCH (10:51)
[2023-03-06] MEDS: TIMOLOL 0.5% OPHTHALMIC SOL 5 ML BOTTLE OU SCH ×2 (10:52→21:37)
[2023-03-06] MEDS: NEBIVOLOL 5 MG TABLET (FP) PO SCH (11:24)
[2023-03-06] MEDS: levETIRAcetam 500 MG TABLET (FP) PO SCH (21:36)
[2023-03-06] MEDS: MIRTAZAPINE 15 MG TABLET (FP) PO SCH (21:37)
[2023-03-06] MEDS: ATORVASTATIN CA 20 MG TABLET (FP) PO SCH (21:37)
[2023-03-07] MEDS: PIPERACILLIN/TAZOB 3.375 GM 3.375 GM in DEXTROSE 5%-WATER - 50 ML IVPB SCH ×3 (02:03→17:26)
[2023-03-07] MEDS: INSULIN SLIDING SCALE (NOVOLOG) 1 VIAL SQ SCH ×4 (06:43→21:35)
[2023-03-07] MEDS: NEBIVOLOL 5 MG TABLET (FP) PO SCH (10:27)
[2023-03-07] MEDS: PANTOPRAZOLE 40 MG TABLET PO SCH (10:27)
[2023-03-07] MEDS: MULTIVITAMINS (DAILY MVI) TABLET (FP) PO SCH (10:27)
[2023-03-07] MEDS: levETIRAcetam 500 MG TABLET (FP) PO SCH ×2 (10:27→21:36)
[2023-03-07] MEDS: APIXABAN 5 MG TABLET PO SCH ×2 (10:27→21:36)
[2023-03-07] MEDS: NIFEdipine E.R. 30 MG TABLET PO SCH (10:27)
[2023-03-07] MEDS: TIMOLOL 0.5% OPHTHALMIC SOL 5 ML BOTTLE OU SCH ×2 (10:28→21:41)
[2023-03-07] MEDS: BRIMONIDINE TARTRATE 0.2% OPHTHALMIC 5 ML BOTTLE OU SCH ×2 (10:28→21:35)
[2023-03-07] MEDS: MIRTAZAPINE 15 MG TABLET (FP) PO SCH (21:37)
[2023-03-07] MEDS: ATORVASTATIN CA 20 MG TABLET (FP) PO SCH (21:37)
[2023-03-08] MEDS: PIPERACILLIN/TAZOB 3.375 GM 3.375 GM in DEXTROSE 5%-WATER - 50 ML IVPB SCH ×3 (01:49→17:28)
[2023-03-08] MEDS: INSULIN SLIDING SCALE (NOVOLOG) 1 VIAL SQ SCH ×4 (06:21→22:06)
[2023-03-08 06:54] LABS: BASO % 0.2 % (0-2.0); EOS % 0.9 % (0-4.5); HEMATOCRIT 29.2 % (32.4-45.2); HEMOGLOBIN 9.2 GM/dL (10.7-15.3); MCH 26.5 pg (25.7-33.7); MCHC 31.7 g/dl (32.0-36.0); MEAN CELL VOLUME 83.7 fl (80-96); MEAN PLT VOLUME 7.3 fl (7.5-11.1); NEUT % 53.9 % (42.8-82.8); PLATELET COUNT 393 10^3/uL (134-434); RBC 3.48 M/mm3 (3.60-5.2); RDW 18.9 % (11.6-15.6); WHITE BLOOD COUNT 8.1 K/mm3 (4.0-10.0)
[2023-03-08 07:07] LABS: POTASSIUM 4.1 mmol/L (3.5-5.1)
[2023-03-08 07:16] LABS: ALBUMIN 1.7 g/dl (3.4-5.0); CALCIUM 8.4 mg/dL (8.5-10.1)
[2023-03-08 07:20] LABS: CREATININE 0.7 mg/dL (0.55-1.3)
[2023-03-08 07:21] LABS: BILIRUBIN,TOTAL 0.4 mg/dL (0.2-1); TOT PROT 6.4 g/dl (6.4-8.2)
[2023-03-08] MEDS: levETIRAcetam 500 MG TABLET (FP) PO SCH ×2 (10:12→22:05)
[2023-03-08] MEDS: NIFEdipine E.R. 30 MG TABLET PO SCH (10:12)
[2023-03-08] MEDS: PANTOPRAZOLE 40 MG TABLET PO SCH (10:12)
[2023-03-08] MEDS: NEBIVOLOL 5 MG TABLET (FP) PO SCH (10:12)
[2023-03-08] MEDS: APIXABAN 5 MG TABLET PO SCH ×3 (10:13→22:05)
[2023-03-08] MEDS: MULTIVITAMINS (DAILY MVI) TABLET (FP) PO SCH (10:13)
[2023-03-08] MEDS: TIMOLOL 0.5% OPHTHALMIC SOL 5 ML BOTTLE OU SCH ×2 (11:16→22:44)
[2023-03-08] MEDS: BRIMONIDINE TARTRATE 0.2% OPHTHALMIC 5 ML BOTTLE OU SCH ×2 (11:16→22:43)
[2023-03-08] MEDS ORDERED: INSULIN (NOVOLOG) ASPART 100 UNITS/ML 10ML VIAL ONE (12:20)
[2023-03-08] MEDS: ATORVASTATIN CA 20 MG TABLET (FP) PO SCH (22:05)
[2023-03-08] MEDS: MIRTAZAPINE 15 MG TABLET (FP) PO SCH (22:05)
[2023-03-09] MEDS: PIPERACILLIN/TAZOB 3.375 GM 3.375 GM in DEXTROSE 5%-WATER - 50 ML IVPB SCH ×3 (05:16→17:08)
[2023-03-09] MEDS: INSULIN SLIDING SCALE (NOVOLOG) 1 VIAL SQ SCH ×4 (06:09→22:48)
[2023-03-09] MEDS: APIXABAN 5 MG TABLET PO SCH ×2 (10:06→22:44)
[2023-03-09] MEDS: levETIRAcetam 500 MG TABLET (FP) PO SCH ×2 (10:06→22:45)
[2023-03-09] MEDS: MULTIVITAMINS (DAILY MVI) TABLET (FP) PO SCH (10:06)
[2023-03-09] MEDS: NEBIVOLOL 5 MG TABLET (FP) PO SCH (10:06)
[2023-03-09] MEDS: PANTOPRAZOLE 40 MG TABLET PO SCH (10:06)
[2023-03-09] MEDS: NIFEdipine E.R. 30 MG TABLET PO SCH (10:06)
[2023-03-09] MEDS: BRIMONIDINE TARTRATE 0.2% OPHTHALMIC 5 ML BOTTLE OU SCH ×2 (10:13→22:45)
[2023-03-09] MEDS ORDERED: INSULIN (NOVOLOG) ASPART 100 UNITS/ML 10ML VIAL ONE ×2 (11:39→17:40)
[2023-03-09] MEDS: TIMOLOL 0.5% OPHTHALMIC SOL 5 ML BOTTLE OU SCH ×2 (12:09→22:46)
[2023-03-09] MEDS ORDERED: BISACODYL 10 MG SUPP.RECT PR ONE (17:00)
[2023-03-09] MEDS: POLYETHYLENE GLYCOL (HEALTHYLAX) 3350 17 GM PACKET PO SCH (17:08)
[2023-03-09] MEDS: MIRTAZAPINE 15 MG TABLET (FP) PO SCH (22:45)
[2023-03-09] MEDS: ATORVASTATIN CA 20 MG TABLET (FP) PO SCH (22:45)
[2023-03-10] MEDS: PIPERACILLIN/TAZOB 3.375 GM 3.375 GM in DEXTROSE 5%-WATER - 50 ML IVPB SCH ×3 (03:00→17:35)
[2023-03-10] MEDS: INSULIN SLIDING SCALE (NOVOLOG) 1 VIAL SQ SCH ×4 (06:36→23:02)
[2023-03-10] MEDS: POLYETHYLENE GLYCOL (HEALTHYLAX) 3350 17 GM PACKET PO SCH (10:15)
[2023-03-10] MEDS: levETIRAcetam 500 MG TABLET (FP) PO SCH ×2 (10:15→21:59)
[2023-03-10] MEDS: MULTIVITAMINS (DAILY MVI) TABLET (FP) PO SCH (10:16)
[2023-03-10] MEDS: BRIMONIDINE TARTRATE 0.2% OPHTHALMIC 5 ML BOTTLE OU SCH ×2 (10:17→22:00)
[2023-03-10] MEDS: NEBIVOLOL 5 MG TABLET (FP) PO SCH (10:17)
[2023-03-10] MEDS: APIXABAN 5 MG TABLET PO SCH ×2 (10:17→22:00)
[2023-03-10] MEDS: TIMOLOL 0.5% OPHTHALMIC SOL 5 ML BOTTLE OU SCH ×2 (10:17→22:00)
[2023-03-10] MEDS: NIFEdipine E.R. 30 MG TABLET PO SCH (10:17)
[2023-03-10] MEDS: PANTOPRAZOLE 40 MG TABLET PO SCH (10:17)
[2023-03-10] MEDS: MIRTAZAPINE 15 MG TABLET (FP) PO SCH (21:59)
[2023-03-10] MEDS: ATORVASTATIN CA 20 MG TABLET (FP) PO SCH (21:59)
[2023-03-11] MEDS: PIPERACILLIN/TAZOB 3.375 GM 3.375 GM in DEXTROSE 5%-WATER - 50 ML IVPB SCH ×3 (03:25→17:15)
[2023-03-11] MEDS: INSULIN SLIDING SCALE (NOVOLOG) 1 VIAL SQ SCH ×4 (06:51→22:02)
[2023-03-11] MEDS: NIFEdipine E.R. 30 MG TABLET PO SCH (10:46)
[2023-03-11] MEDS: NEBIVOLOL 5 MG TABLET (FP) PO SCH (10:46)
[2023-03-11] MEDS: levETIRAcetam 500 MG TABLET (FP) PO SCH ×2 (10:46→21:53)
[2023-03-11] MEDS: PANTOPRAZOLE 40 MG TABLET PO SCH (10:46)
[2023-03-11] MEDS: MULTIVITAMINS (DAILY MVI) TABLET (FP) PO SCH (10:47)
[2023-03-11] MEDS: APIXABAN 5 MG TABLET PO SCH ×2 (10:47→21:53)
[2023-03-11] MEDS: POLYETHYLENE GLYCOL (HEALTHYLAX) 3350 17 GM PACKET PO SCH (10:47)
[2023-03-11] MEDS: BRIMONIDINE TARTRATE 0.2% OPHTHALMIC 5 ML BOTTLE OU SCH ×2 (10:47→22:06)
[2023-03-11] MEDS: TIMOLOL 0.5% OPHTHALMIC SOL 5 ML BOTTLE OU SCH ×2 (10:48→22:05)
[2023-03-11] MEDS: ATORVASTATIN CA 20 MG TABLET (FP) PO SCH (21:53)
[2023-03-11] MEDS: MIRTAZAPINE 15 MG TABLET (FP) PO SCH (21:54)
[2023-03-12] MEDS: PIPERACILLIN/TAZOB 3.375 GM 3.375 GM in DEXTROSE 5%-WATER - 50 ML IVPB SCH ×3 (03:30→16:05)
[2023-03-12] MEDS: INSULIN SLIDING SCALE (NOVOLOG) 1 VIAL SQ SCH ×4 (06:06→23:03)
[2023-03-12] MEDS: MULTIVITAMINS (DAILY MVI) TABLET (FP) PO SCH (11:18)
[2023-03-12] MEDS: NEBIVOLOL 5 MG TABLET (FP) PO SCH (11:18)
[2023-03-12] MEDS: NIFEdipine E.R. 30 MG TABLET PO SCH (11:18)
[2023-03-12] MEDS: POLYETHYLENE GLYCOL (HEALTHYLAX) 3350 17 GM PACKET PO SCH (11:18)
[2023-03-12] MEDS: levETIRAcetam 500 MG TABLET (FP) PO SCH ×2 (11:18→22:48)
[2023-03-12] MEDS: APIXABAN 5 MG TABLET PO SCH ×2 (11:18→22:48)
[2023-03-12] MEDS: PANTOPRAZOLE 40 MG TABLET PO SCH (11:19)
[2023-03-12] MEDS: TIMOLOL 0.5% OPHTHALMIC SOL 5 ML BOTTLE OU SCH ×2 (11:19→23:03)
[2023-03-12] MEDS: BRIMONIDINE TARTRATE 0.2% OPHTHALMIC 5 ML BOTTLE OU SCH ×2 (11:19→23:04)
[2023-03-12] MEDS: MIRTAZAPINE 15 MG TABLET (FP) PO SCH (22:48)
[2023-03-12] MEDS: ATORVASTATIN CA 20 MG TABLET (FP) PO SCH (22:48)
[2023-03-13] MEDS: INSULIN SLIDING SCALE (NOVOLOG) 1 VIAL SQ SCH ×4 (06:22→22:02)
[2023-03-13 08:14] LABS: BASO % 0.8 % (0-2.0); EOS % 3.6 % (0-4.5); HEMATOCRIT 32.6 % (32.4-45.2); HEMOGLOBIN 10.1 GM/dL (10.7-15.3); LYMPH % 36.1 % (8-40); MCH 25.7 pg (25.7-33.7); MEAN PLT VOLUME 7.5 fl (7.5-11.1); NEUT % 50.5 % (42.8-82.8); PLATELET COUNT 486 10^3/uL (134-434); RBC 3.92 M/mm3 (3.60-5.2); RDW 18.7 % (11.6-15.6); WHITE BLOOD COUNT 6.7 K/mm3 (4.0-10.0)
[2023-03-13 08:34] LABS: POTASSIUM 4.1 mmol/L (3.5-5.1)
[2023-03-13 08:36] LABS: CALCIUM 8.8 mg/dL (8.5-10.1)
[2023-03-13 08:40] LABS: CREATININE 0.6 mg/dL (0.55-1.3)
[2023-03-13 08:42] LABS: BILIRUBIN,TOTAL 0.2 mg/dL (0.2-1); TOT PROT 7.8 g/dl (6.4-8.2)
[2023-03-13 08:48] LABS: ALBUMIN 2.2 g/dl (3.4-5.0)
[2023-03-13] MEDS: BRIMONIDINE TARTRATE 0.2% OPHTHALMIC 5 ML BOTTLE OU SCH ×2 (09:38→21:49)
[2023-03-13] MEDS: MULTIVITAMINS (DAILY MVI) TABLET (FP) PO SCH (09:39)
[2023-03-13] MEDS: APIXABAN 5 MG TABLET PO SCH ×2 (09:39→21:47)
[2023-03-13] MEDS: POLYETHYLENE GLYCOL (HEALTHYLAX) 3350 17 GM PACKET PO SCH (09:39)
[2023-03-13] MEDS: levETIRAcetam 500 MG TABLET (FP) PO SCH ×2 (09:39→21:47)
[2023-03-13] MEDS: NEBIVOLOL 5 MG TABLET (FP) PO SCH (09:39)
[2023-03-13] MEDS: NIFEdipine E.R. 30 MG TABLET PO SCH (09:39)
[2023-03-13] MEDS: PANTOPRAZOLE 40 MG TABLET PO SCH (09:39)
[2023-03-13] MEDS: TIMOLOL 0.5% OPHTHALMIC SOL 5 ML BOTTLE OU SCH ×2 (09:39→21:48)
[2023-03-13] MEDS: MIRTAZAPINE 15 MG TABLET (FP) PO SCH (21:47)
[2023-03-13] MEDS: ATORVASTATIN CA 20 MG TABLET (FP) PO SCH (21:48)
[2023-03-14 03:42] VITALS: RESP 20
[2023-03-14] MEDS ORDERED: INSULIN (NOVOLOG) ASPART 100 UNITS/ML 10ML VIAL ONE (06:08)
[2023-03-14] MEDS: INSULIN SLIDING SCALE (NOVOLOG) 1 VIAL SQ SCH ×2 (06:30→12:07)
[2023-03-14 07:52] LABS: CALCIUM 8.7 mg/dL (8.5-10.1)
[2023-03-14 07:53] LABS: BLOOD UREA NITROGEN 7.9 mg/dL (7-18)
[2023-03-14 07:56] LABS: CREATININE 0.7 mg/dL (0.55-1.3)
[2023-03-14] MEDS: NEBIVOLOL 5 MG TABLET (FP) PO SCH (11:03)
[2023-03-14] MEDS: NIFEdipine E.R. 30 MG TABLET PO SCH (11:03)
[2023-03-14] MEDS: PANTOPRAZOLE 40 MG TABLET PO SCH (11:03)
[2023-03-14] MEDS: APIXABAN 5 MG TABLET PO SCH (11:03)
[2023-03-14] MEDS: levETIRAcetam 500 MG TABLET (FP) PO SCH (11:03)
[2023-03-14] MEDS: MULTIVITAMINS (DAILY MVI) TABLET (FP) PO SCH (11:03)
[2023-03-14] MEDS: POLYETHYLENE GLYCOL (HEALTHYLAX) 3350 17 GM PACKET PO SCH (11:04)
[2023-03-14] MEDS: TIMOLOL 0.5% OPHTHALMIC SOL 5 ML BOTTLE OU SCH (11:05)
[2023-03-14] MEDS: BRIMONIDINE TARTRATE 0.2% OPHTHALMIC 5 ML BOTTLE OU SCH (11:05)
[2023-03-14 14:04] VITALS: BP 156/66; PULSE 102; TEMP 98
== END 2023-03-14 14:17 | DRG 327 ==
LOC: JER 16:44 → JERBED 21:14 → J5S 02-24 04:13 → J4W 02-26 21:30
PROVIDERS: ADMIT Internal Medicine; ATTEND Family Medicine
PROC: 0DQ64ZZ Repair Stomach, Percutaneous Endoscopic Approach (ICD-10-PCS; 2023-03-05)
PROC: 0DQE4ZZ Repair Large Intestine, Percutaneous Endoscopic Approach (ICD-10-PCS; 2023-03-05)
PROC: 8E0W4CZ Robotic Assisted Procedure of Trunk Region, Percutaneous Endoscopic Approach (ICD-10-PCS; 2023-03-05)
PROC: 0DB64ZZ Excision of Stomach, Percutaneous Endoscopic Approach (ICD-10-PCS; principal; 2023-03-05 16:45)
PROC: 0DBE4ZZ Excision of Large Intestine, Percutaneous Endoscopic Approach (ICD-10-PCS; 2023-03-05 16:45)
PROC: 0TP5X0Z Removal of Drainage Device from Kidney, External Approach (ICD-10-PCS; 2023-03-13)
DX: K94.29 Other complications of gastrostomy (principal); I48.20 Chronic atrial fibrillation, unspecified; N39.0 Urinary tract infection, site not specified; N13.30 Unspecified hydronephrosis; N99.528 Other complication of incontinent external stoma of urinary tract; L98.8 Other specified disorders of the skin and subcutaneous tissue; K92.9 Disease of digestive system, unspecified; G30.9 Alzheimer's disease, unspecified; D64.9 Anemia, unspecified; F02.80 Dementia in other diseases classified elsewhere, unspecified severity, without behavioral disturbance, psychotic disturbance, mood disturbance, and anxiety; E11.9 Type 2 diabetes mellitus without complications; I10 Essential (primary) hypertension; E78.5 Hyperlipidemia, unspecified; Y83.9 Surgical procedure, unspecified as the cause of abnormal reaction of the patient, or of later complication, without mention of misadventure at the time of the procedure
CPT/HCPCS: 36415; 50389; 74018-TC-FY; 74176-TC; 76775-TC; 80048; 80053; 81003; 82607; 82728; 82962; 83540; 83550; 83735; 84134; 84443; 85025; 85027; 85610; 85730; 86850; 86900; 86901; 87086; 87635; 88307-TC; 90677; 93005; 93010; 94760; 97161-GP; 99285-25; J1756